=== PATIENT | female | born 1935 | race Caucasian/White ===

== ENCOUNTER → 2019-09-11 10:55 | Outpatient (BNVA) | payer MEDICARE, OTHER, SELFPAY | PROVIDERS: Family Provider Nurse Practitioner; Visit Provider Family Medicine | DX: I10 Essential (primary) hypertension (principal) | CPT/HCPCS: 80048 ==

== ENCOUNTER 2020-03-10 22:37 | Emergency (ER) | payer MEDICARE, OTHER, SELFPAY ==
[2020-03-10 22:43] VITALS: BP 198/91; PULSE 82; RESP 18; TEMP 36.8; O2SAT 96; BMI 28.1
--- NOTE | 2020-03-10 23:08 | XRR_ITS ---
PROCEDURE INFORMATION: Exam: XR Chest, 1 View Exam date and time: 03/10/2020 11:35 PM Age: 84 years old Clinical indication: Shortness of breath; Right-sided chest pain; Prior surgery; Surgery type: Stents; Additional info: Chest pain, resolved, SOB today TECHNIQUE: Imaging protocol: XR of the chest Views: 1 view. COMPARISON: CR Chest 2 views* [id number] 09/09/2015 12:10 PM FINDINGS: Lungs: The lungs are hyperinflated and hyperlucent with architectural changes compatible with emphysema. No pneumonia or pulmonary edema. Pleural space: No pleural effusion or pneumothorax. Heart/Mediastinum: The cardiac silhouette is not enlarged. The mediastinal contours are normal. Vasculature: The thoracic aorta is atherosclerotic. Bones/joints: No acute osseous abnormality. XR/XR chest 1V portable [id number] IMPRESSION: Emphysema.
--- NOTE | 2020-03-10 23:16 | ED_ITS ---
HPI - Extremity Problem General: Chief complaint: Extremity Problem,Nontraumatic Stated complaint: right arm pain Time Seen by Provider: 03/10/20 22:55 History of Present Illness: HPI Narrative: 4-year-old female with a history of coronary disease presents with an episode of right arm pain today, that was resolved. She states that it started medial to her right shoulder blade, radiated down her right side, and down into her arm. She did state that she too k 2 nitro prior to getting in the car to come to the hospital. These did not seem to help. On the way here, the pain resolved. She was not overly short of breath, but notes a mild increase in her shortness of breath during the episode when she had the pain. She also notes that she had an episode of less tightness yesterday with some mild shortness of breath that resolved after taking 1 nitroglycerin. She notes that her last stents were placed 3 or 4 years ago at a different facility. She has not had any stress testing or other interventions since. She is on anticoagulation, since September for a DVT of the left lower extremity. MD Complaint: extremity pain Onset (ago): hour(s) Pain Consistency: constant Location: right Quality: aching Radiation: proximal Relieving factors: nothing Exacerbating factors: nothing Associated symptoms: Reports chest pain and short of breath; Deny fever(s) or rash Context: history of DVT Review of Systems Const: Denies: fever(s) Eyes: Denies: change in vision ENMT: Denies: swelling of lips/tongue, bleeding gums, epistaxis or sinus pain Card: Reports: chest pain and edema; Denies: palpitations or irregular heart rhythm Resp: Reports: dyspnea; Denies: productive cough, non-productive cough or wheezing GI: Denies: abdominal pain, nausea or vomiting : Denies: dysuria or hematuria Musc: Reports: back pain; Denies: neck pain Skin/Breast: Denies: rash or erythema Neuro: Denies: headache(s), dizziness or vertigo Psych: Denies: anxiety Physical Exam Const: GENERAL APPEARANCE: well developed ORIENTATION/CONSCIOUSNESS: Yes oriented to person, Yes oriented to place and Yes oriented to time HENMT: COMMON NORMALS: normocephalic, external ears normal and Normal external nose present HEAD & SCALP: normocephalic FACE & SINUS: normal facial exam NOSE: Normal external nose present and No nasal discharge present EXTERNAL EAR: Yes external ears normal Eye: COMMON NORMALS: Equal, round and reactive pupils present, EOMs intact bilaterally and conjunctivae normal EYELID: eyelids normal CONJUNCTIVA: Yes conjunctivae normal PUPIL: Yes Equal, round and reactive pupils present Neck/C-Spine: GENERAL: No tracheal deviation Chest: COMMONS NORMALS: normal inspection of the chest CHEST: No tenderness Resp: COMMON NORMALS: clear to auscultation bilaterally EFFORT & INSPECTION: No tachypneic, No respiratory distress, No retractions, No uses accessory muscles and No tracheal deviation AUSCULTATION: clear to auscultation bilaterally, no rhonchi, no wheezes and lung sounds not diminished Cardio: COMMON NORMALS: regular rate and regular rhythm RATE: regular rate RHYTHM: regular rhythm HEART SOUNDS: no murmurs PERIPHERAL PULSES: radial pulses present GI: INSPECTION: No abdominal distension AUSCULTATION: No Hyperactive bowel sounds present and No Hypoactive bowel sounds present PALPATION: No Guarding due to palpation present (GI) and No Rigid due to palpation PERCUSSION: no dullness to percussion and no tympanic to percussion Neuro: SENSORIUM/ORIENTATION: Yes oriented to person, Yes oriented to place an d Yes oriented to time Psych: COMMON NORMALS: mental status grossly normal Skin: COMMON NORMALS: no rashes or lesions noted GENERAL SKIN EXAM: no rashes or lesions noted Course Vital Signs: Vital signs: Vital Signs Temperature 98.2 F 03/10/20 22:43 Pulse Rate 68 03/11/20 00:02 Respiratory Rate 16 03/11/20 00:02 Blood Pressure 170/80 03/11/20 00:02 Pulse Oximetry 94 03/11/20 00:02 MDM - Extremity (Nontraumatic) MDM Narrative: Medical decision making narrative: 84-year-old female presents with right back/shoulder pain, radiating into her right arm. Pain was self resolved prior to arrival. She has been hypertensive here, but notes that she missed her dosage of hypertension medicine today. She is not overly short of breath, but does complain of some mild shortness of breath for the past couple of days. Her EKG on arrival shows a normal sinus rhythm with normal axis and the rate is in the 60s. There are no acute ST changes. Repeat at 2 hours is the same. Her troponin initially was 14, and fell. It did not elevate. Her chest x-ray appears stable to improved from prior. Given her history, the patient was offered an observation bed in the hospital. Would be to continue monitoring, and rule out with serial troponins. She declined, stating that she would like to see her mri special procedures technologist in [facility] instead. She knows the risks including worsening symptoms, and possible . She will follow-up with cardiology. Warning signs were given for her return. Lab Data: Labs: Lab Results 03/10/20 03/10/20 03/10/20 Range/Units 23:12 23:12 23:12 WBC 8.1 (4.0-10.0) 10^3/ uL RBC 4.16 (4.1-5.3) 10^6/u L Hgb 12.8 (11.5-15.3) g/dL Hct 40.6 (37.0-47.0) % MCV 97.6 (81-99) fL MCH 30.8 (28.0-34.0) pg MCHC 31.5 (30.0-36.0) g/dL RDW 13.8 (12.1-15.1) % Plt Count 258 (130-400) 10^3/c mm MPV 9.2 (7.4-10.4) fL Neut % (Auto) 58.5 % Lymph % (Auto) 27.5 % [place] % (Auto) 10.3 % Eos % (Auto) 2.8 % Baso % (Auto) 0.7 % Neut # (Auto) 4.74 (1.8-7.7) 10^3/u L Lymph # (Auto) 2.2 (0.8-4.8) 10^3/u L [place] # (Auto) 0.8 (0.2-0.9) 10^3/u L Eos # (Auto) 0.2 (0.0-0.8) 10^3/u L Baso # (Auto) 0.1 (0.0-0.1) 10^3/u L Nucleated RBC % (a uto) 0 % Nucleated RBCs # 0.0 /100WBC Sodium 140 (136-145) mmol/L Potassium 4.4 (3.5-5.1) mmol/L Chloride 104 (98-107) mmol/L Carbon Dioxide 28 (22-29) mmol/L Anion Gap 12.4 (5-19) BUN 19 (8-23) mg/dL Creatinine 1.0 H (0.5-0.9) mg/dL GFR Calculation Not Reportable Glucose 100 (65-115) mg/dL Calculated Osmolal ity 287 (285-295) mOsm/k g Calcium 9.1 (8.5-10.5) mg/dL Total Bilirubin 0.2 (0.15-1.2) mg/dL AST 13 (0-32) U/L ALT 7 (0-33) U/L Alkaline Phosphata se 109 H (35-105) IU/L Creatine Kinase 44 (26-192) U/L Troponin T Baselin e 14 H (0-10) ng/L Troponin T 120 Min eddie (0-10) ng/L Delta Troponin T (0-10) ABS# NT-Pro-B Natriuret Pep 336 (0-450) pg/mL Total Protein 6.6 (6.6-8.7) g/dL Albumin 3.9 (3.5-5.2) g/dL Globulin 2.7 (1.3-4.6) g/dL 03/11/20 Range/Units 00:53 WBC (4.0-10.0) 10^3/ uL RBC (4.1-5.3) 10^6/u L Hgb (11.5-15.3) g/dL Hct (37.0-47.0) % MCV (81-99) fL MCH (28.0-34.0) pg MCHC (30.0-36.0) g/dL RDW (12.1-15.1) % Plt Count (130-400) 10^3/c mm MPV (7.4-10.4) fL Neut % (Auto) % Lymph % (Auto) % [place] % (Auto) % Eos % (Auto) % Baso % (Auto) % Neut # (Auto) (1.8-7.7) 10^3/u L Lymph # (Auto) (0.8-4.8) 10^3/u L [place] # (Auto) (0.2-0.9) 10^3/u L Eos # (Auto) (0.0-0.8) 10^3/u L Baso # (Auto) (0.0-0.1) 10^3/u L Nucleated RBC % (a uto) % Nucleated RBCs # /100WBC Sodium (136-145) mmol/L Potassium (3.5-5.1) mmol/L Chloride (98-107) mmol/L Carbon Dioxide (22-29) mmol/L Anion Gap (5-19) BUN (8-23) mg/dL Creatinine (0.5-0.9) mg/dL GFR Calculation Glucose (65-115) mg/dL Calculated Osmolal ity (285-295) mOsm/k g Calcium (8.5-10.5) mg/dL Total Bilirubin (0.15-1.2) mg/dL AST (0-32) U/L ALT (0-33) U/L Alkaline Phosphata se (35-105) IU/L Creatine Kinase (26-192) U/L Troponin T Baselin e (0-10) ng/L Troponin T 120 Min eddie 11.93 H (0-10) ng/L Delta Troponin T -2.07 L (0-10) ABS# NT-Pro-B Natriuret Pep (0-450) pg/mL Total Protein (6.6-8.7) g/dL Albumin (3.5-5.2) g/dL Globulin (1.3-4.6) g/dL Discharge Plan Discharge Patient Disposition: Home Clinical Impression: Atypical chest pain Condition: Stable Discharge Orders: Discharge Order (Routine); Ordered 03/11/20 Ordered By: Socrates Ortega Referrals: Bakari Oneil, VARNISH DIPPER-C [Primary Care Provider] - Discharge Diet: Usual diet Discharge Activity: Increase activity as tolerated Patient Instructions: Chest Pain (ED) Activity Restrictions/Additional Instructions: Return for return of arm discomfort, back or chest discomfort. Return for shortness of breath, or, cough, sputum production or other concerning symptoms. Be sure to take your nighttime dosage of blood pressure medication when you return home. Call your heart doctor later today, and let them know you were evaluated here for arm and back discomfort. They may wish to perform more tests as an outpatient. Coding Level of Care Code ED Outpatient Physical Therapist for Chg Fwd Exam Comprehensive
[2020-03-10 23:21] LABS: Basophils # 0.1 10^3/uL (0.0-0.1); Basophils % 0.7 %; Eosinophils # 0.2 10^3/uL (0.0-0.8); Eosinophils % 2.8 %; Hematocrit 40.6 % (37.0-47.0); Hemoglobin 12.8 g/dL (11.5-15.3); Lymphocytes # 2.2 10^3/uL (0.8-4.8); Lymphocytes % 27.5 %; Mean Corpuscular HGB Conc 31.5 g/dL (30.0-36.0); Mean Corpuscular Hemoglobin 30.8 pg (28.0-34.0); Mean Corpuscular Volume 97.6 fL (81-99); Mean Platelet Volume 9.2 fL (7.4-10.4); Monocytes # 0.8 10^3/uL (0.2-0.9); Monocytes % 10.3 %; Neutrophils # 4.74 10^3/uL (1.8-7.7); Neutrophils % 58.5 %; Nucleated Red Blood Cells % 0 %; Platelet Count 258 10^3/cmm (130-400); Red Blood Count 4.16 10^6/uL (4.1-5.3); Red Cell Distribution Width 13.8 % (12.1-15.1); White Blood Count 8.1 10^3/uL (4.0-10.0)
[2020-03-10 23:56] LABS: Alanine Aminotransferase 7 U/L (0-33); Albumin Level 3.9 g/dL (3.5-5.2); Alkaline Phosphatase 109 IU/L (35-105); Anion Gap 12.4 (5-19); Aspartate Amino Transferase 13 U/L (0-32); Blood Urea Nitrogen 19 mg/dL (8-23); Calcium 9.1 mg/dL (8.5-10.5); Carbon Dioxide 28 mmol/L (22-29); Chloride 104 mmol/L (98-107); Creatine Phosphokinase 44 U/L (26-192); Globulin 2.7 g/dL (1.3-4.6); Glucose 100 mg/dL (65-115); NT Pro B Type Natriuretic Pept 336 pg/mL (0-450); Osmolality Calculated 287 mOsm/kg (285-295); Potassium 4.4 mmol/L (3.5-5.1); Sodium 140 mmol/L (136-145); Total Bilirubin 0.2 mg/dL (0.15-1.2); Total Protein 6.6 g/dL (6.6-8.7)
[2020-03-10] MEDS: labetalol 5 mg/mL SDV 20mL 10 MG IVP (23:58)
[2020-03-10] MEDS: nitroglycerin 1 gm/inch oint Pkt 1 INCH TOPICAL (23:59)
[2020-03-11 00:02] VITALS: BP 170/80; PULSE 68; RESP 16; O2SAT 94
[2020-03-11 00:10] LABS: Troponin(5th) Baseline 14 ng/L (0-10)
--- NOTE | 2020-03-11 01:08 | ECG_ITS ---
[facility] Test Date: 2020-03-11 Pat Name: Stacey Benitez Department: Room: Gender: Female [employer] Operator: : 1935 Requested By: Socrates Mendoza Order Number: [id number] Brooke MD: Rubén Killian M.D. Measurements Intervals [place] Rate: 63 P: 67 DE: 167 QRS: 16 QRSD: 79 T: 74 QT: 403 QTc: 414 Interpretive Statements SINUS RHYTHM No previous ECG available for comparison Electronically Signed On 03-11-2020 12:02:29 CDT by Rubén Killian M.D. [email or web address]
[2020-03-11 01:31] LABS: Troponin 5 2HR 11.93 ng/L (0-10)
[2020-03-11 01:32] LABS: Troponin 5 2HR Delta -2.07 ABS# (0-10)
[2020-03-11] MEDS: labetalol 5 mg/mL SDV 20mL 10 MG IVP (01:45)
[2020-03-11 02:11] VITALS: BP 149/51; PULSE 88; RESP 16; O2SAT 98
== END 2020-03-11 02:12 | disposition home or self-care (01) ==
PROVIDERS: Emergency Provider Emergency Medicine; PCP Nurse Practitioner
DX: R07.89 Other chest pain (principal)
CPT/HCPCS: 12345; 36415; 71045; 80053; 82550; 83880; 84484; 85025; 93005; 96374; 96376; 99282; 99284; J3490

== ENCOUNTER 2020-03-12 10:32 | Outpatient (CLI) | payer MEDICARE, OTHER, SELFPAY | END 2020-03-12 10:33 | disposition home or self-care (01) | LOC: LAB 10:38 | PROVIDERS: PCP Nurse Practitioner; Visit Provider Surgery Vascular Surgery | DX: I71.4 Abdominal aortic aneurysm, without rupture (principal) | CPT/HCPCS: 82565 ==

== ENCOUNTER 2020-03-14 13:20 | Outpatient (CLI) | payer MEDICARE, OTHER, SELFPAY ==
[2020-03-14 14:26] LABS: INR 1.27 (0.8-1.2)
[2020-03-14 14:27] LABS: Partial Thromboplastin Time 49.6 SECONDS (23.9-36.7)
== END 2020-03-14 13:21 | disposition home or self-care (01) ==
LOC: LAB 13:27
PROVIDERS: PCP Nurse Practitioner; Visit Provider Internal Medicine Interventional Cardiology
DX: R07.9 Chest pain, unspecified (principal); I71.4 Abdominal aortic aneurysm, without rupture; I10 Essential (primary) hypertension
CPT/HCPCS: 36415; 85610; 85730

== ENCOUNTER → 2020-03-28 16:58 | Outpatient (BNVA) | payer MEDICARE, OTHER, SELFPAY | PROVIDERS: PCP Nurse Practitioner; Visit Provider Surgery Vascular Surgery | DX: I71.4 Abdominal aortic aneurysm, without rupture (principal) | CPT/HCPCS: 80048 ==

== ENCOUNTER 2020-05-24 14:45 | Emergency (ER) | payer MEDICARE, OTHER, SELFPAY ==
[2020-05-24] VITALS (9 sets, daily range): BP systolic 130–190; BP diastolic 76–108; PULSE 67–91; RESP 15–21; TEMP 36.4; O2SAT 97–100; BMI 27.4
--- NOTE | 2020-05-24 15:05 | ED_ITS ---
Documented by User: Rikki Greenwood DO 05/25/20 10:35 HPI - Chest Pain General: Chief Complaint: Chest Pain Stated Complaint: chest pain/ cardiac hx Time Seen by Provider: 05/24/20 14:48 History of Present Illness: HPI narrative: 85-year-old female comes in complaining chest pain it was present when she woke up this morning it is radiating around her lower portion of her chest she is not radiating into her back or into her legs. She does have a history of abdominal aortic aneurysm but that has not been bothering her recently has been monitored and stable for some time. She is been following with a doctor in [place]. She does have a coronary history of coronary artery disease. She is not currently having any pain. She has had testing done recently in [place] for her abdominal aortic aneurysm and for her heart. We do not have copies of these records. MD complaint: chest pain and chest heaviness Pertinent past history: coronary artery disease Onset (ago): hour(s) Timing of current episode: episodic and now resolved Onset: during rest Pain location: epigastric Pain radiation: none Severity: moderate Quality: tightness, aching and heaviness Relieving factors: nothing Exacerbating factors: nothing Associated symptoms: Reports no associated symptoms; Deny abdominal pain, diaphoresis, dyspnea, fever(s), leg edema, nausea, palpitations, sense of impending doom, syncope or vomiting Treatment prior to arrival: none Review of Systems Const: Denies: fever(s) or diaphoresis ENMT: Denies: throat pain, ear or mastoid pain, nasal discharge or nasal congestion Card: Denies: palpitations or syncope Resp: Denies: dyspnea GI: Denies: abdominal pain, nausea or vomiting : Denies: flank pain, difficulty voiding, dysuria, urinary frequency or urinary urgency Skin/Breast: Denies: rash or pruritus PFS ED PFSH: Medical History (Updated 05/24/20 @ 21:04 by Lynn Yip) Coronary artery disease Hypertension Physical Exam Const: COMMON NORMALS: no acute distress GENERAL APPEARANCE: cooperative and comfortable ORIENTATION/CONSCIOUSNESS: Yes awake, Yes oriented to person, Yes oriented to place and Yes oriented to time HENMT: COMMON NORMALS: normocephalic, atraumatic and hearing grossly normal bilaterally HEAD & SCALP: normocephalic and atraumatic Eye: COMMON NORMALS: Equal, round and reactive pupils present, EOMs intact bilaterally, conjunctivae normal and no scleral icterus CONJUNCTIVA: Yes conjunctivae normal PUPIL: Yes Equal, round and reactive pupils present Neck/C-Spine: COMMON NORMALS: full ROM, no lymphadenopathy, supple and no JVD Lymph: LYMPHATIC: no lymphadenopathy noted and no lymphedema noted Resp: COMMON NORMALS: normal respiratory effort, No retractions, No use of accessory muscles and clear to auscultation bilaterally AUSCULTATION: clear to auscultation bilaterally Cardio: COMMON NORMALS: no JVD, regular rate, regular rhythm and No murmurs present (Cardio) RATE: regular rate RHYTHM: regular rhythm GI: COMMON NORMALS: Soft to palpation and No hepatosplenomegaly present AUSCULTATION: Yes normoactive bowel sounds PALPATION: Yes Soft to palpation, No Tenderness to palpation present (GI), No Guarding due to palpation present (GI) and Yes No hepatosplenomegaly present Extremity: COMMON NORMALS: normal to inspection, capillary refill normal, no clubbing, cyanosis or edema, no calf tenderness and no pedal edema Neuro: SENSORIUM/ORIENTATION: Yes oriented to person, Yes oriented to place and Yes oriented to time Skin: COMMON NORMALS: no rashes or lesions noted GENERAL SKIN EXAM: no rashes or lesions noted Course 2 Vital Signs: Vital signs: Vital Signs Temperature 97.6 F 05/24/20 21:34 Pulse Rate 72 05/24/20 21:34 Respiratory Rate 18 05/24/20 21:34 Blood Pressure 190/96 05/24/20 21:34 Pulse Oximetry 98 05/24/20 21:34 MDM - Chest Pain MDM Narrative: Medical decision making narrative: Care turned over to Dr. Beck at change of shift waiting on troponin patient does have history of heart disease. Lab Data: Labs: Lab Results 05/24/20 05/24/20 05/24/20 Range/Units 15:20 15:20 15:20 WBC 7.8 (4.0-10.0) 10^3/ uL RBC 4.23 (4.1-5.3) 10^6/u L Hgb 13.1 (11.5-15.3) g/dL Hct 39.9 (37.0-47.0) % MCV 94.3 (81-99) fL MCH 31.0 (28.0-34.0) pg MCHC 32.8 (30.0-36.0) g/dL RDW 13.6 (12.1-15.1) % Plt Count 291 (130-400) 10^3/c mm MPV 9.0 (7.4-10.4) fL Neut % (Auto) 72.2 % Lymph % (Auto) 17.7 % [place] % (Auto) 7.6 % Eos % (Auto) 1.5 % Baso % (Auto) 0.5 % Neut # (Auto) 5.59 (1.8-7.7) 10^3/u L Lymph # (Auto) 1.4 (0.8-4.8) 10^3/u L [place] # (Auto) 0.6 (0.2-0.9) 10^3/u L Eos # (Auto) 0.1 (0.0-0.8) 10^3/u L Baso # (Auto) 0.0 (0.0-0.1) 10^3/u L Nucleated RBC % (a uto) 0 % Nucleated RBCs # 0.0 /100WBC Sodium 140 (136-145) mmol/L Potassium 4.2 (3.5-5.1) mmol/L Chloride 103 (98-107) mmol/L Carbon Dioxide 21 L (22-29) mmol/L Anion Gap 20.2 H (5-19) BUN 16 (8-23) mg/dL Creatinine 0.8 (0.5-0.9) mg/dL GFR Calculation Not Reportable Glucose 130 H (65-115) mg/dL Calculated Osmolal ity 293 (285-295) mOsm/k g Calcium 8.9 (8.5-10.5) mg/dL Total Bilirubin 0.3 (0.15-1.2) mg/dL AST 12 (0-32) U/L ALT 7 (0-33) U/L Alkaline Phosphata se 139 H (35-105) IU/L Troponin T Baselin e 9 (0-10) ng/L Troponin T 120 [address] [place] (0-10) ng/L Delta Troponin T (0-10) ABS# Total Protein 6.0 L (6.6-8.7) g/dL Albumin 3.9 (3.5-5.2) g/dL Globulin 2.1 (1.3-4.6) g/dL 05/24/20 Range/Units 17:39 WBC (4.0-10.0) 10^3/ uL RBC (4.1-5.3) 10^6/u L Hgb (11.5-15.3) g/dL Hct (37.0-47.0) % MCV (81-99) fL MCH (28.0-34.0) pg MCHC (30.0-36.0) g/dL RDW (12.1-15.1) % Plt Count (130-400) 10^3/c mm MPV (7.4-10.4) fL Neut % (Auto) % Lymph % (Auto) % [place] % (Auto) % Eos % (Auto) % Baso % (Auto) % Neut # (Auto) (1.8-7.7) 10^3/u L Lymph # (Auto) (0.8-4.8) 10^3/u L [place] # (Auto) (0.2-0.9) 10^3/u L Eos # (Auto) (0.0-0.8) 10^3/u L Baso # (Auto) (0.0-0.1) 10^3/u L Nucleated RBC % (a uto) % Nucleated RBCs # /100WBC Sodium (136-145) mmol/L Potassium (3.5-5.1) mmol/L Chloride (98-107) mmol/L Carbon Dioxide (22-29) mmol/L Anion Gap (5-19) BUN (8-23) mg/dL Creatinine (0.5-0.9) mg/dL GFR Calculation Glucose (65-115) mg/dL Calculated Osmolal ity (285-295) mOsm/k g Calcium (8.5-10.5) mg/dL Total Bilirubin (0.15-1.2) mg/dL AST (0-32) U/L ALT (0-33) U/L Alkaline Phosphata se (35-105) IU/L Troponin T Baselin e (0-10) ng/L Troponin T 120 [address] [place] 9.57 (0-10) ng/L Delta Troponin T 0.57 (0-10) ABS# Total Protein (6.6-8.7) g/dL Albumin (3.5-5.2) g/dL Globulin (1.3-4.6) g/dL Discharge Plan Discharge Patient Disposition: Left Against Medical Advice Clinical Impression: Chest pain Qualifiers: Chest pain type: unspecified Qualified Code(s): R07.9 - Chest pain, unspecified Condition: Stable Prescriptions: New Protonix 40 mg tablet,delayed release (DR/EC) 40 mg PO DAILY Qty: 30 RF: 0 No Action losartan 50 mg tablet 50 mg PO DAILY RF: 0 Tylenol Extra Strength 500 mg Tablet 1,000 mg PO PRN RF: 0 triamcinolone acetonide 0.1 % cream 1 applic TOPICAL PRN RF: 0 nitroglycerin 0.4 mg tablet, sublingual 0.4 mg sublingual PRN PRN (Reason: Chest Pain) RF: 0 alprazolam 2 mg tablet 2 mg PO BID PRN (Reason: unknown) RF: 0 Pradaxa 150 mg Capsule 150 mg PO BID RF: 0 magnesium oxide 400 mg magnesium Tablet 600 mg PO DAILY RF: 0 Eye Vitamins 1 tab PO DAILY RF: 0 Vitamin D3 1 cap PO DAILY RF: 0 Discharge Orders: Discharge Order (Routine); Ordered 05/24/20 Ordered By: Lynn Yip Referrals: Bakari Oneil, [employer] ELASTIC OPERATOR-C [Primary Care Provider] - 1-3 days Discharge Diet: Advance as tolerated Discharge Activity: Increase activity as tolerated Patient Instructions: Chest Pain (ED) Activity Restrictions/Additional Instructions: You're leaving AGAINST MEDICAL ADVICE and are at risk for or severe permanent disability by doing so. You are more than welcome to return at any time for recheck and for further evaluation and care suture change you change your mind. If you develop recurrence of your pain, become sweaty for no reason, vomit, pass out or nearly pass out, or have any other concerns please return to the ER immediately for recheck. Take the medication that I have given you as it may help with the stomach acid. Be certain to follow-up with your value advisor at home as soon as possible for recheck. Stand Alone Forms: Against Medical Advice Discharge Date/Time: 05/24/20 21:34 Sign Out Sign Out Data: Patient Sign Out occurred on 05/24/20 at 18:57. Patient's care was discussed, and care was transferred from to Lynn Yip. Coding Level of Care Code ED Sheet Rock Hanger for Chg Fwd Exam Comprehensive Documented by User: Lynn Yip 05/24/20 22:01 HPI - Chest Pain General: Chief Complaint: Chest Pain Stated Complaint: chest pain/ cardiac hx Time Seen by Provider: 05/24/20 14:48 PFSH ED PFSH: Medical History (Updated 05/24/20 @ 21:04 by Lynn Yip) Coronary artery disease Hypertension Course Vital Signs: Vital signs: Vital Signs Temperature 97.6 F 05/24/20 21:34 Pulse Rate 72 05/24/20 21:34 Respiratory Rate 18 05/24/20 21:34 Blood Pressure 190/96 05/24/20 21:34 Pulse Oximetry 98 05/24/20 21:34 MDM - Chest Pain MDM Narrative: Medical decision making narrative: 2106 -Case turned over to me at change of shift from Dr. Greenwood. Please see his note for his history, physical exam and medical decision-making notes. Stacey is a nice 85-year-old female who comes in complaining of chest discomfort. She states the pain feels like an indigestion type pain that is throughout her chest. Did not radiate to her back, her neck, her jaws or down her arms. She denied any nausea or vomiting, diaphoresis, shortness of breath, or worsening with exertion. The patient symptom lasted approximately 6 hours before it gradually resolved on its own. She did take 2 doses of sublingual nitroglycerin at home but got no relief with them. Patient states that this feels different than when she had her card iac pain in the past as that pain was always down her arms. Upon further history the patient states that she had a heart cath done in [place] 2 months ago and was told it was normal. Patient does have a known abdominal aortic aneurysm but she adamantly denies any abdominal or back pain. Patient states that she is not certain of the size but it is not something her cardiovascular surgeon feels needs to be intervened on now. The patient's exam is normal to me here. She has stable vital signs and a normal heart and lung evaluation. On exam she has no evidence of abdominal tenderness and I do not feel a pulsatile mass. Per her hospital chest pain pathway the patient's heart score is slightly elevated at 5. This is for primarily risk factors and stable but continued abnormal EKG findings. I discussed with the patient and her at length the risks of this being a heart attack and despite my recommendations they want to go home. Patient states that she is very hungry and she wants to leave to eat. I have informed her that the risks of leaving include or severe permanent disability by this but despite my warnings they choose to leave. Patient clearly has the capacity to make this decision and despite me trying to convince her to stay she refuses. She does understand she is welcome to return if her symptoms change or worsen but at this time she is feeling better and would like to go home. It is reassuring she had a normal heart cath 2 months ago but this is her report I have not had a chance to review this myself. She does understand though she is welcome to return here if she changes her mind. Lab Data: Attestation: I reviewed the patient's lab results. Labs: Lab Results 05/24/20 05/24/20 05/24/20 Range/Units 15:20 15:20 15:20 WBC 7.8 (4.0-10.0) 10^3/ uL RBC 4.23 (4.1-5.3) 10^6/u L Hgb 13.1 (11.5-15.3) g/dL Hct 39.9 (37.0-47.0) % MCV 94.3 (81-99) fL MCH 31.0 (28.0-34.0) pg MCHC 32.8 (30.0-36.0) g/dL RDW 13.6 (12.1-15.1) % Plt Count 291 (130-400) 10^3/c mm MPV 9.0 (7.4-10.4) fL Neut % (Auto) 72.2 % Lymph % (Auto) 17.7 % [place] % (Auto) 7.6 % Eos % (Auto) 1.5 % Baso % (Auto) 0.5 % Neut # (Auto) 5.59 (1.8-7.7) 10^3/u L Lymph # (Auto) 1.4 (0.8-4.8) 10^3/u L [place] # (Auto) 0.6 (0.2-0.9) 10^3/u L Eos # (Auto) 0.1 (0.0-0.8) 10^3/u L Baso # (Auto) 0.0 (0.0-0.1) 10^3/u L Nucleated RBC % (a uto) 0 % Nucleated RBCs # 0.0 /100WBC Sodium 140 (136-145) mmol/L Potassium 4.2 (3.5-5.1) mmol/L Chloride 103 (98-107) mmol/L Carbon Dioxide 21 L (22-29) mmol/L Anion Gap 20.2 H (5-19) BUN 16 (8-23) mg/dL Creatinine 0.8 (0.5-0.9) mg/dL GFR Calculation Not Reportable Glucose 130 H (65-115) mg/dL Calculated Osmolal ity 293 (285-295) mOsm/k g Calcium 8.9 (8.5-10.5) mg/dL Total Bilirubin 0.3 (0.15-1.2) mg/dL AST 12 (0-32) U/L ALT 7 (0-33) U/L Alkaline Phosphata se 139 H (35-105) IU/L Troponin T Baselin e 9 (0-10) ng/L Troponin T 120 [address] [place] (0-10) ng/L Delta Troponin T (0-10) ABS# Total Protein 6.0 L (6.6-8.7) g/dL Albumin 3.9 (3.5-5.2) g/dL Globulin 2.1 (1.3-4.6) g/dL 05/24/20 Range/Units 17:39 WBC (4.0-10.0) 10^3/ uL RBC (4.1-5.3) 10^6/u L Hgb (11.5-15.3) g/dL Hct (37.0-47.0) % MCV (81-99) fL MCH (28.0-34.0) pg MCHC (30.0-36.0) g/dL RDW (12.1-15.1) % Plt Count (130-400) 10^3/c mm MPV (7.4-10.4) fL Neut % (Auto) % Lymph % (Auto) % [place] % (Auto) % Eos % (Auto) % Baso % (Auto) % Neut # (Auto) (1.8-7.7) 10^3/u L Lymph # (Auto) (0.8-4.8) 10^3/u L [place] # (Auto) (0.2-0.9) 10^3/u L Eos # (Auto) (0.0-0.8) 10^3/u L Baso # (Auto) (0.0-0.1) 10^3/u L Nucleated RBC % (a uto) % Nucleated RBCs # /100WBC Sodium (136-145) mmol/L Potassium (3.5-5.1) mmol/L Chloride (98-107) mmol/L Carbon Dioxide (22-29) mmol/L Anion Gap (5-19) BUN (8-23) mg/dL Creatinine (0.5-0.9) mg/dL GFR Calculation Glucose (65-115) mg/dL Calculated Osmolal ity (285-295) mOsm/k g Calcium (8.5-10.5) mg/dL Total Bilirubin (0.15-1.2) mg/dL AST (0-32) U/L ALT (0-33) U/L Alkaline Phosphata se (35-105) IU/L Troponin T Baselin e (0-10) ng/L Troponin T [address] [place] 9.57 (0-10) ng/L Delta Troponin T 0.57 (0-10) ABS# Total Protein (6.6-8.7) g/dL Albumin (3.5-5.2) g/dL Globulin (1.3-4.6) g/dL Imaging Data^: CXR: Attestation: I personally reviewed and interpreted this imaging study as follows: My impression: No acute cardiopulmonary findings. EKG Data^: EKG 1: Attestation: I personally reviewed and interpreted this EKG as follows: EKG interpretation date: 05/24/20 EKG interpretation time: 15:34 Interpretation: Normal sinus rhythm at 73 beats a minute, T wave inversions in aVL and V2 to, unchanged from previous. EKG 2: Attestation: I personally reviewed and interpreted this EKG as follows: EKG interpretation date: 05/24/20 EKG interpretation time: 17:35 Interpretation: Normal sinus rhythm at 66 beats a minute, no acute ST-T wave changes. Stable T wave inversions in aVL and V2. Similar to previous. Discharge Plan Discharge Patient Disposition: Left Against Medical Advice Clinical Impression: Chest pain Qualifiers: Chest pain type: unspecified Qualified Code(s): R07.9 - Chest pain, unspecified Condition: Stable Prescriptions: New Protonix 40 mg tablet,delayed release (DR/EC) 40 mg PO DAILY Qty: 30 RF: 0 No Action losartan 50 mg tablet 50 mg PO DAILY RF: 0 Tylenol Extra Strength 500 mg Tablet 1,000 mg PO PRN RF: 0 triamcinolone acetonide 0.1 % cream 1 applic TOPICAL PRN RF: 0 nitroglycerin 0.4 mg tablet, sublingual 0.4 mg sublingual PRN PRN (Reason: Chest Pain) RF: 0 alprazolam 2 mg tablet 2 mg PO BID PRN (Reason: unknown) RF: 0 Pradaxa 150 mg Capsule 150 mg PO BID RF: 0 magnesium oxide 400 mg magnesium Tablet 600 mg PO DAILY RF: 0 Eye Vitamins 1 tab PO DAILY RF: 0 Vitamin D3 1 cap PO DAILY RF: 0 Discharge Orders: Discharge Order (Routine); Ordered 05/24/20 Ordered By: Lynn Yip Referrals: Bakari Oneil, [employer] T[employer] ELASTIC OPERATOR-C [Primary Care Provider] - 1-3 days Discharge Diet: Advance as tolerated Discharge Activity: Increase activity as tolerated Patient Instructions: Chest Pain (ED) Activity Restrictions/Additional Instructions: You're leaving AGAINST MEDICAL ADVICE and are at risk for or severe permanent disability by doing so. You are more than welcome to return at any time for recheck and for further evaluation and care suture change you change your mind. If you develop recurrence of your pain, become sweaty for no reason, vomit, pass out or nearly pass out, or have any other concerns please return to the ER immediately for recheck. Take the medication that I have given you as it may help with the stomach acid. Be certain to follow-up with your value advisor at home as soon as possible for recheck. Stand Alone Forms: Against Medical Advice Discharge Date/Time: 05/24/20 21:34 Sign Out Sign Out Data: Patient Sign Out occurred on 05/24/20 at 18:57. Patient's care was discussed, and care was transferred from to Lynn Yip. Coding Level of Care Code ED Sheet Rock Hanger for Santi Fwd Exam Comprehensive
--- NOTE | 2020-05-24 15:07 | XR_ITS ---
WS: [id number] XR chest 1V portable [id number] REASON FOR EXAM: chest pain FINDINGS: The chest is unchanged compared to previous examination of 03/10/2020. The lungs are hyperexpanded with flattening of the hemidiaphragms. No active pulmonary parenchymal or pleural disease is noted. Moderate tortuosity and ectasia of the thoracic aorta. Heart size is normal. The bony thorax is intact. XR/XR chest 1V portable [id number] IMPRESSION: Probable obstructive lung disease. No acute chest abnormality identified.
--- NOTE | 2020-05-24 15:07 | ECG_ITS ---
[facility] Test Date: 2020-05-24 Pat Name: Stacey Benitez Department: Room: Gender: Female Prefitter Doors: : 1935 Requested By: Rikki Cerda Order Number: [id number] Reading MD: RICARDO SCRUGGS Measurements Intervals [place] Rate: 73 P: 74 LA: 167 QRS: 1 QRSD: 70 T: 72 QT: 372 QTc: 411 Interpretive Statements SINUS RHYTHM Compared to ECG 03/11/2020 00:57:13 No significant changes Electronically Signed On 05-24-2020 19:27:58 PLANT SECURITY GUARD by RICARDO SCRUGGS [id number]
[2020-05-24 15:33] LABS: Basophils % 0.5 %; Eosinophils # 0.1 10^3/uL (0.0-0.8); Eosinophils % 1.5 %; Hematocrit 39.9 % (37.0-47.0); Hemoglobin 13.1 g/dL (11.5-15.3); Lymphocytes # 1.4 10^3/uL (0.8-4.8); Lymphocytes % 17.7 %; Mean Corpuscular HGB Conc 32.8 g/dL (30.0-36.0); Mean Corpuscular Volume 94.3 fL (81-99); Monocytes # 0.6 10^3/uL (0.2-0.9); Monocytes % 7.6 %; Neutrophils # 5.59 10^3/uL (1.8-7.7); Neutrophils % 72.2 %; Nucleated Red Blood Cells % 0 %; Platelet Count 291 10^3/cmm (130-400); Red Blood Count 4.23 10^6/uL (4.1-5.3); Red Cell Distribution Width 13.6 % (12.1-15.1); White Blood Count 7.8 10^3/uL (4.0-10.0)
[2020-05-24 16:59] LABS: Alanine Aminotransferase 7 U/L (0-33); Albumin Level 3.9 g/dL (3.5-5.2); Alkaline Phosphatase 139 IU/L (35-105); Anion Gap 20.2 (5-19); Aspartate Amino Transferase 12 U/L (0-32); Blood Urea Nitrogen 16 mg/dL (8-23); Calcium 8.9 mg/dL (8.5-10.5); Carbon Dioxide 21 mmol/L (22-29); Chloride 103 mmol/L (98-107); Globulin 2.1 g/dL (1.3-4.6); Glucose 130 mg/dL (65-115); Osmolality Calculated 293 mOsm/kg (285-295); Potassium 4.2 mmol/L (3.5-5.1); Sodium 140 mmol/L (136-145); Total Bilirubin 0.3 mg/dL (0.15-1.2)
--- NOTE | 2020-05-24 17:07 | ECG_ITS ---
[facility] Test Date: 2020-05-24 Pat Name: Stacey Benitez Department: Room: Gender: Female Armament Aircraft Mechanic: : 1935 Requested By: Rikki Cerda Order Number: [id number] Reading MD: RICARDO SCRUGGS Measurements Intervals [place] Rate: 66 P: 71 CO: 159 QRS: 13 QRSD: 81 T: 78 QT: 402 QTc: 422 Interpretive Statements SINUS RHYTHM SEPTAL MYOCARDIAL INFARCTION , OF INDETERMINATE AGE [40+ ms Q WAVE IN V1/V2] Compared to ECG 05/24/2020 15:34:59 Myocardial infarct finding now present Electronically Signed On 05-24-2020 19:31:18 AD OPERATIONS INTERN by RICARDO SCRUGGS [id number]
[2020-05-24 17:40] LABS: Troponin(5th) Baseline 9 ng/L (0-10)
[2020-05-24 18:23] LABS: Troponin 5 2HR 9.57 ng/L (0-10); Troponin 5 2HR Delta 0.57 ABS# (0-10)
--- NOTE | 2020-05-24 20:22 | PC.NURSE ---
PATIENT UPDATED ON CARE PLAN AND ALL QUESTIONS ANSWERED
== END 2020-05-24 21:34 | disposition left against medical advice (07) ==
PROVIDERS: Family Medicine; Emergency Provider Emergency Medicine; PCP Nurse Practitioner
DX: R07.9 Chest pain, unspecified (principal); Z53.21 Procedure and treatment not carried out due to patient leaving prior to being seen by health care provider; I25.10 Atherosclerotic heart disease of native coronary artery without angina pectoris; I10 Essential (primary) hypertension
CPT/HCPCS: 12345; 71045; 80053; 84484; 85025; 93005; 99283

== ENCOUNTER → 2020-07-23 12:42 | Outpatient (BNVA) | payer MEDICARE, OTHER, SELFPAY | PROVIDERS: PCP Internal Medicine; Referring Provider Internal Medicine; Visit Provider Nurse Practitioner Family | DX: N39.0 Urinary tract infection, site not specified; N39.46 Mixed incontinence; R82.71 Bacteriuria | CPT/HCPCS: 81003; 87077; 87086; 87184 ==

== ENCOUNTER → 2020-08-22 14:00 | Outpatient (BNVA) | payer MEDICARE, OTHER, SELFPAY | PROVIDERS: PCP Internal Medicine; Visit Provider Surgery Vascular Surgery | DX: I71.4 Abdominal aortic aneurysm, without rupture (principal); I10 Essential (primary) hypertension; I25.10 Atherosclerotic heart disease of native coronary artery without angina pectoris | CPT/HCPCS: 80048 ==

== ENCOUNTER → 2020-12-04 10:56 | Outpatient (BNVA) | payer MEDICARE, OTHER, SELFPAY | PROVIDERS: PCP Internal Medicine; Visit Provider Surgery Vascular Surgery | DX: I10 Essential (primary) hypertension (principal) | CPT/HCPCS: 80048 ==

== ENCOUNTER → 2020-12-11 08:52 | Outpatient (BNVA) | payer MEDICARE, OTHER, SELFPAY | PROVIDERS: PCP Internal Medicine; Visit Provider Nurse Practitioner | DX: N39.46 Mixed incontinence (principal); Z98.890 Other specified postprocedural states; R82.71 Bacteriuria | CPT/HCPCS: 81003; 87077; 87086; 87184 ==

== ENCOUNTER → 2021-01-02 11:56 | Outpatient (BNVA) | payer MEDICARE, OTHER, SELFPAY | PROVIDERS: PCP Nurse Practitioner; Visit Provider Nurse Practitioner | DX: M25.511 Pain in right shoulder (principal); I10 Essential (primary) hypertension; R82.90 Unspecified abnormal findings in urine | CPT/HCPCS: 81000; 87077; 87086; 87184 ==

== ENCOUNTER 2021-03-03 13:23 | Outpatient (CLI) | payer MEDICARE, OTHER, SELFPAY ==
--- NOTE | 2021-03-03 13:33 | CT_ITS ---
WS: [id number] CT CHEST TECHNIQUE: Noncontrast CT of the chest with coronal and sagittal reformatted images. CLINICAL INFORMATION: PULMONARY NODULE COMPARISON: CTA chest 2006 DLP: 600.[address] scans at [facility] use at least one of these dose optimization techniques: automat ed exposure control; mA and/or kV adjustment per patient size (includes targeted exams where dose is matched to clinical indication); or iterative reconstruction. FINDINGS: Moderate chronic emphysematous changes. No acute pulmonary infiltrates. Subpleural opacity left lower lobe measuring 9 x 13 mm. Adjacent satellite nodule measuring 6 mm. Subsegmental atelectasis right l ower lobe with small wedge-shaped opacity measuring 10 mm. This appears unchanged since 2016 CT abdom en pelvis Bronchiectasis with mucus plugging in the anterior left upper lobe unchanged since 2005. Scattered fi brosis in both lungs. Aortic calcification. Coronary calcification. Normal caliber thoracic aorta. No mediastinal or hilar lymphadenopathy. Adrenal glands are normal. Cholecystectomy. Small esophageal h iatal hernia. Partially visualized endograft in the upper abdomen. Mild thoracic kyphosis.. CT/CT chest wo con [id number] IMPRESSION: 1. Noncalcified subpleural opacity left lower lobe posteriorly measuring 9 x 1 3 mm with a small satellite nodule measuring 6 mm. This is directly behind the ribs and not easily amenable to CT-guided biopsy. Recommend further evaluation with PET/CT and/or three-month chest CT follow-up. Neoplasm is not excluded. 2. 10 mm wedge-shaped opacity with subsegmental atelectasis right lower lobe i s stable since 2016. 3. Bronchiectasis and mucus plugging in the anterior left upper lobe is unchan ged since 2005. 4. Moderate to advanced chronic emphysematous changes. 5. No mediastinal or hilar lymphadenopathy.
== END 2021-03-03 13:24 | disposition home or self-care (01) ==
PROVIDERS: PCP Internal Medicine; Visit Provider Student in an Organized Health Care Education/Training Program
DX: R91.1 Solitary pulmonary nodule (principal); J47.9 Bronchiectasis, uncomplicated; J98.11 Atelectasis
CPT/HCPCS: 71250

== ENCOUNTER → 2021-04-08 11:54 | Outpatient (BNVA) | payer MEDICARE, OTHER, SELFPAY | PROVIDERS: PCP Nurse Practitioner; Visit Provider Nurse Practitioner | DX: J44.9 Chronic obstructive pulmonary disease, unspecified (principal); I10 Essential (primary) hypertension; R82.90 Unspecified abnormal findings in urine; N39.0 Urinary tract infection, site not specified; I82.409 Acute embolism and thrombosis of unspecified deep veins of unspecified lower extremity | CPT/HCPCS: 80053; 80061; 81000; 82607; 84443; 85025; 87077; 87086; 87184 ==

== ENCOUNTER 2021-04-30 09:22 | Outpatient (CLI) | payer MEDICARE, OTHER, SELFPAY ==
--- NOTE | 2021-04-30 09:35 | USCV_ITS ---
Stacey Benitez Age: 86 Gender: F : 1935 Exam Date: 04/30/2021 10:12 Ordering Phys: Luz Brooks APRN Technologist: Luz Bah Exam Location: [facility] [place]_ Indication: LEFT GROIN PAIN Findings No Abnormalites seen at this time. No hematoma or fistula. Conclusions Normal left groin. Dr. Nneka Dos Santos DO (Electronically Signed) Final Date: 30 April 2021 12:31 S
== END 2021-04-30 09:23 | disposition home or self-care (01) ==
LOC: RAD 09:28
PROVIDERS: PCP Nurse Practitioner; Visit Provider Nurse Practitioner Adult Health
DX: R10.32 Left lower quadrant pain (principal); I72.9 Aneurysm of unspecified site; I71.4 Abdominal aortic aneurysm, without rupture; Z95.828 Presence of other vascular implants and grafts
CPT/HCPCS: 93926; 93978

== ENCOUNTER 2021-04-30 09:29 | Outpatient (CLI) | payer MEDICARE, OTHER, SELFPAY ==
--- NOTE | 2021-04-30 08:45 | USCV_ITS ---
Stacey Benitez Age: 86 Gender: F : 1935 Exam Date: 04/30/2021 09:56 Ordering Phys: Rafa Rucker MD (Andy) ([email or web address]) Technologist: Luz Bah Exam Location: [facility] [place] Indication: H/O AAA HISTORY: Diameter (cm) AP x Transverse x Length Velocity (cm/s) Waveform Prox Aorta: 2.18 x 2.24 x 74.10 Mid Aorta: 1.94 x 2.20 x 62.80 Distal Aorta: x x Right Iliac Prox: x x 58.70 Left Iliac Prox: x x 62.00 Stent Prox Landing x x Aneurysmal Sac Max 4.81 x 5.92 x 10.20 Lt Lat Sac Dim Rt Lat Sac Dim Stent Dist Landing x x Right Iliac Stent 1.04 x 1.29 x Left Iliac Stent 1.24 x 1.26 x Right Renal Art 47.80 Left Renal Art 56.90 FINDINGS: The infrarenal aortic aneurysm sac measured 4.8 x 5.9 cm. The aortic stent graft appeared to be patent The stent graft in the iliac arteries appeared to be patent Normal Doppler flow velocities CONCLUSIONS 1. Patent aortic stent graft in the infrarenal position. 2. The aneurysm sac measured 4.8 x 5.9 x 10.2. 3. No flow signals are noted in the aneurysm sac to suggest any endoleak 4. The iliac limbs of the stent graft's also were found to be patent with a normal flow pattern No similar previous studies are available for comparison Dr Geovany Serrano MD [facility] (Electronically Signed) Final Date: 30 April 2021 19:49 S
== END 2021-04-30 09:30 | disposition home or self-care (01) ==
LOC: RAD 09:30
PROVIDERS: PCP Nurse Practitioner; Visit Provider Thoracic Surgery (Cardiothoracic Vascular Surgery)
DX: I71.4 Abdominal aortic aneurysm, without rupture (principal); Z95.828 Presence of other vascular implants and grafts
CPT/HCPCS: 93978

== ENCOUNTER → 2021-05-07 15:26 | Outpatient (BNVA) | payer MEDICARE, OTHER, SELFPAY | PROVIDERS: PCP Nurse Practitioner; Visit Provider Nurse Practitioner Family | DX: N39.0 Urinary tract infection, site not specified (principal); M19.90 Unspecified osteoarthritis, unspecified site; M25.551 Pain in right hip; M25.552 Pain in left hip; M25.561 Pain in right knee; M25.562 Pain in left knee; Z74.09 Other reduced mobility; N30.00 Acute cystitis without hematuria; M19.91 Primary osteoarthritis, unspecified site; G89.29 Other chronic pain | CPT/HCPCS: 81000 ==

== ENCOUNTER 2021-05-08 16:01 | Observation (INO) | payer MEDICARE, OTHER, SELFPAY ==
[2021-05-08] VITALS (15 sets, daily range): BP systolic 112–163; BP diastolic 56–81; PULSE 76–103; RESP 15–25; TEMP 37.4–37.7; O2SAT 95–99; BMI 30.1
--- NOTE | 2021-05-08 16:03 | W.ED.CHESTPA ---
Documented by User: Senthil Dubose MD 05/11/21 17:22 HPI - Chest Pain General: Chief Complaint: Chest Pain Stated Complaint: INCREASED BP, BURNING IN CHEST, DISCOMFORT R ARM Time Seen by Provider: 05/08/21 16:03 History of Present Illness: HPI narrative: Ms. Ordonez is a 86-year-old lady with significant past medical for CAD, hypertension, hyperlipidemia, COPD with chronic hypoxic respiratory failure, and AAA status post repair presents emergency department due to chest discomfort. Symptom onset was earlier today at rest. She describes a burning sensation across her chest with radiation down the right arm. Mild associated nausea but no vomiting. No other typical cardiac features. Intensity of symptoms was moderate. Course is now improved and has resolution of symptoms. Denies frequent episodes of chest pain. Recent changes in health include being diagnosed yesterday with urinary tract infection and at that time was given steroid course and antibiotics, ?reason for steroids. She did have earlier episode today as well, relieved by nitro. Review of Systems General: Reports: 10 or more systems reviewed and unremarkable except in HPI and below PFSH ED PFSH: Medical History AAA (abdominal aortic aneurysm) Anxiety and depression COPD (chronic obstructive pulmonary disease) Coronary artery disease DVT (deep venous thrombosis) Hyperlipidemia Hypertension Hypothyroidism Obesity Peripheral vascular disease Urinary incontinence, mixed Surgical History History of AAA (abdominal aortic aneurysm) repair September 2020 in [place], [place] History of PTCA Hx of cholecystectomy Hx of heart artery stent Hx of hysterectomy Family History Sister Cancer BREAST Social History Quit status (tobacco): has quit using tobacco Year quit tobacco: 1994 [id number] Second hand smoke exposure: Yes Smoking risk assessment/counseling performed?: Yes Alcohol intake: never Desire information about alcohol rehabilitation?: No Counseling given: No Desire information about substance/drug rehabilitation?: No Counseling given: No Adopted: No Caregiver/support person: No Lives independently: Yes Household members: children Housing: House Marital status: service: No Current occupational status: retired Pets and animals: Yes History of recent travel: No Current gender identity: Female Physical Exam Narrative: EXAM NARRATIVE: GENERAL/CONSTITUTIONAL - well-appearing. No acute distress. Eyes - PERRL, no conjunctival injection ENMT - Atraumatic external nose and ears. Moist mucous membranes NECK - supple. trachea midline CARDIOVASCULAR - regular rate and rhythm. RESPIRATORY -clear to auscultation bilaterally. ABDOMEN/GI - Nontender/Nondistended. MSK - Extremities without obvious deformity or tenderness to palpation SKIN - Warm, Dry NEURO - alert and appropriately oriented. Moves all extremities equally. Course ED course: - Patient was seen and evaluated by me at bedside - Patient placed on cardiac monitors, IV access obtained - Initial evaluation notable for no acute distress, nontoxic appearance. Chest pain not reproducible by palpation on exam - Labs notable for minimal leukocytosis though difficult to interpret in the context of steroid use. Delta troponin negative. BNP minimally elevated. - Imaging notable for no pneumothorax or lobar consolidation - Upon serial reexamination after treatment the patient was similar - Based on patient history, evaluation, labs, and imaging as interpreted the most likely cause of the patient's condition is chest pain with moderate heart score - The results of ED evaluation were discussed with the patient including plan for admission due to requirement for level of care not available if discharged to prevent significant worsening/deterioration. -Patient care handed off to overnight ED physician Dr. Bob pending admission to the hospital Vital Signs: Vital signs: Vital Signs Temperature 97.7 F 05/09/21 16:17 Pulse Rate 86 05/09/21 16:17 Respiratory Rate 16 05/09/21 16:17 Blood Pressure 113/50 05/09/21 16:17 Pulse Oximetry 98 05/09/21 16:17 MDM - Chest Pain Medical Records: Attestation: I reviewed the patient's medical records. Lab Data: Attestation: I reviewed the patient's lab results. Labs: Lab Results 05/08/21 05/08/21 05/08/21 16:25 16:25 16:25 WBC 12.8 10^3/uL H 10 ^3/uL (4.0-10.0) RBC 3.82 10^6/uL L 10 ^6/uL (4.1-5.3) Hgb 11.4 g/dL L g/dL (11.5-15.3) Hct 35.8 % L % (37.0-47.0) MCV 93.7 fl fl (81-99) MCH 29.8 pg pg (28.0-34.0) MCHC 31.8 g/dL g/dL (30.0-36.0) RDW 14.6 % % (12.1-15.1) Plt Count 279 10^3/cmm 10^3 /cmm (130-400) MPV 9.0 fL fL (7.4-10.4) Neut % (Auto) 88.9 % % Lymph % (Auto) 4.2 % % [place] % (Auto) 6.1 % % Eos % (Auto) 0.0 % % Baso % (Auto) 0.1 % % Neut # (Auto) 11.42 10^3/uL H 1 0^3/uL (1.8-7.7) Lymph # (Auto) 0.5 10^3/uL L 10^ 3/uL (0.8-4.8) [place] # (Auto) 0.8 10^3/uL 10^3/ uL (0.2-0.9) Eos # (Auto) 0.0 10^3/uL 10^3/ uL (0.0-0.8) Baso # (Auto) 0.0 10^3/uL 10^3/ uL (0.0-0.1) Nucleated RBC % (a uto) 0 % % Nucleated RBCs # 0.0 /100WBC /100W BC Sodium 138 mmol/L mmol/L (136-145) Potassium 3.9 mmol/L mmol/L (3.5-5.1) Chloride 103 mmol/L mmol/L (98-107) Carbon Dioxide 23 mmol/L mmol/L (22-29) Anion Gap 15.9 (5-19) BUN 20 mg/dL mg/dL (8-23) Creatinine 0.7 mg/dL mg/dL (0.5-0.9) GFR Calculation Not Reportable Glucose 160 mg/dL H mg/dL (65-115) Calculated Osmolal ity 292 mOsm/kg mOsm/ kg (285-295) Calcium 8.2 mg/dL L mg/dL (8.5-10.5) Total Bilirubin 0.2 mg/dL mg/dL (0.15-1.2) AST 11 U/L U/L (0-32) ALT 9 U/L U/L (0-33) Alkaline Phosphata se 110 IU/L H IU/L (35-105) Troponin T Baselin e 13 ng/L H ng/L (0-10) Troponin T 120 [place] Delta Troponin T NT-Pro-B Natriuret Pep 535 pg/mL H pg/mL (0-450) Total Protein 6.0 g/dL L g/dL (6.6-8.7) Albumin 3.4 g/dL L g/dL (3.5-5.2) Globulin 2.6 g/dL g/dL (1.3-4.6) Lipase 28 U/L U/L (13-60) 05/08/21 18:25 WBC RBC Hgb Hct MCV MCH MCHC RDW Plt Count MPV Neut % (Auto) Lymph % (Auto) [place] % (Auto) Eos % (Auto) Baso % (Auto) Neut # (Auto) Lymph # (Auto) [place] # (Auto) Eos # (Auto) Baso # (Auto) Nucleated RBC % (a uto) Nucleated RBCs # Sodium Potassium Chloride Carbon Dioxide Anion Gap BUN Creatinine GFR Calculation Glucose Calculated Osmolal ity Calcium Total Bilirubin AST ALT Alkaline Phosphata se Troponin T Baselin e Troponin T 120 [place] 18.92 ng/L H ng/L (0-10) Delta Troponin T 5.92 ABS# ABS# (0-10) NT-Pro-B Natriuret Pep Total Protein Albumin Globulin Lipase EKG Data^: EKG 1: Attestation: I personally reviewed and interpreted this EKG as follows: EKG interpretation date: 05/08/21 EKG interpretation time: 16:36 Interpretation: Twelve-lead EKG shows a regular rhythm at a rate of 96. IA interval 159, QRS duration 84, QTc 418. Normal axis. Interpretation: Sinus rhythm. Nonspecific ST segment abnormalities. Discharge Plan Discharge Patient Disposition: Admitted As Inpatient Admit Provider: Varghese Coronel Clinical Impression: Chest pain Condition: Stable Discharge Diet: Cardiac and Low Salt Discharge Activity: Increase activity as tolerated Coding Level of Care Code ED Operation Shift Supervisor for Chg Fwd Documented by User: Odell Bob MD 05/08/21 19:27 HPI - Chest Pain General: Chief Complaint: Chest Pain Stated Complaint: INCREASED BP, BURNING IN CHEST, DISCOMFORT R ARM Time Seen by Provider: 05/08/21 16:03 PFSH ED PFSH: Medical History AAA (abdominal aortic aneurysm) Anxiety and depression COPD (chronic obstructive pulmonary disease) Coronary artery disease DVT (deep venous thrombosis) Hyperlipidemia Hypertension Hypothyroidism Obesity Peripheral vascular disease Urinary incontinence, mixed Surgical History History of AAA (abdominal aortic aneurysm) repair September 2020 in [place], [place] History of PTCA Hx of cholecystectomy Hx of heart artery stent Hx of hysterectomy Family History Sister Cancer BREAST Social History Quit status (tobacco): has quit using tobacco Year quit tobacco: 1994 [id number] Second hand smoke exposure: Yes Smoking risk assessment/counseling performed?: Yes Alcohol intake: never Desire information about alcohol rehabilitation?: No Counseling given: No Desire information about substance/drug rehabilitation?: No Counseling given: No Adopted: No Caregiver/support person: No Lives independently: Yes Household members: children Housing: House Marital status: service: No Current occupational status: retired Pets and animals: Yes History of recent travel: No Current gender identity: Female Course Vital Signs: Vital signs: Vital Signs Temperature 97.7 F 05/09/21 16:17 Pulse Rate 86 05/09/21 16:17 Respiratory Rate 16 05/09/21 16:17 Blood Pressure 113/50 05/09/21 16:17 Pulse Oximetry 98 05/09/21 16:17 MDM - Chest Pain MDM Narrative: Medical decision making narrative: Patient presents here with chest pain is also being treated for UTI patient's initial troponin here was 13 and took patient over from Dr. Dubose with the plan to admit for ACS rule out. Lab Data: Labs: Lab Results 05/08/21 05/08/21 05/08/21 16:25 16:25 16:25 WBC 12.8 10^3/uL H 10 ^3/uL (4.0-10.0) RBC 3.82 10^6/uL L 10 ^6/uL (4.1-5.3) Hgb 11.4 g/dL L g/dL (11.5-15.3) Hct 35.8 % L % (37.0-47.0) MCV 93.7 fl fl (81-99) MCH 29.8 pg pg (28.0-34.0) MCHC 31.8 g/dL g/dL (30.0-36.0) RDW 14.6 % % (12.1-15.1) Plt Count 279 10^3/cmm 10^3 /cmm (130-400) MPV 9.0 fL fL (7.4-10.4) Neut % (Auto) 88.9 % % Lymph % (Auto) 4.2 % % [place] % (Auto) 6.1 % % Eos % (Auto) 0.0 % % Baso % (Auto) 0.1 % % Neut # (Auto) 11.42 10^3/uL H 1 0^3/uL (1.8-7.7) Lymph # (Auto) 0.5 10^3/uL L 10^ 3/uL (0.8-4.8) [place] # (Auto) 0.8 10^3/uL 10^3/ uL (0.2-0.9) Eos # (Auto) 0.0 10^3/uL 10^3/ uL (0.0-0.8) Baso # (Auto) 0.0 10^3/uL 10^3/ uL (0.0-0.1) Nucleated RBC % (a uto) 0 % % Nucleated RBCs # 0.0 /100WBC /100W BC Sodium 138 mmol/L mmol/L (136-145) Potassium 3.9 mmol/L mmol/L (3.5-5.1) Chloride 103 mmol/L mmol/L (98-107) Carbon Dioxide 23 mmol/L mmol/L (22-29) Anion Gap 15.9 (5-19) BUN 20 mg/dL mg/dL (8-23) Creatinine 0.7 mg/dL mg/dL (0.5-0.9) GFR Calculation Not Reportable Glucose 160 mg/dL H mg/dL (65-115) Calculated Osmolal ity 292 mOsm/kg mOsm/ kg (285-295) Calcium 8.2 mg/dL L mg/dL (8.5-10.5) Total Bilirubin 0.2 mg/dL mg/dL (0.15-1.2) AST 11 U/L U/L (0-32) ALT 9 U/L U/L (0-33) Alkaline Phosphata se 110 IU/L H IU/L (35-105) Troponin T Baselin e 13 ng/L H ng/L (0-10) Troponin T 120 [place] Delta Troponin T NT-Pro-B Natriuret Pep 535 pg/mL H pg/mL (0-450) Total Protein 6.0 g/dL L g/dL (6.6-8.7) Albumin 3.4 g/dL L g/dL (3.5-5.2) Globulin 2.6 g/dL g/dL (1.3-4.6) Lipase 28 U/L U/L (13-60) 05/08/21 18:25 WBC RBC Hgb Hct MCV MCH MCHC RDW Plt Count MPV Neut % (Auto) Lymph % (Auto) [place] % (Auto) Eos % (Auto) Baso % (Auto) Neut # (Auto) Lymph # (Auto) [place] # (Auto) Eos # (Auto) Baso # (Auto) Nucleated RBC % (a uto) Nucleated RBCs # Sodium Potassium Chloride Carbon Dioxide Anion Gap BUN Creatinine GFR Calculation Glucose Calculated Osmolal ity Calcium Total Bilirubin AST ALT Alkaline Phosphata se Troponin T Baselin e Troponin T 120 [place] 18.92 ng/L H ng/L (0-10) Delta Troponin T 5.92 ABS# ABS# (0-10) NT-Pro-B Natriuret Pep Total Protein Albumin Globulin Lipase Discharge Plan Discharge Patient Disposition: Admitted As Inpatient Admit Provider: Varghese Coronel Clinical Impression: Chest pain Condition: Stable Discharge Diet: Cardiac and Low Salt Discharge Activity: Increase activity as tolerated Coding Level of Care Code ED Operation Shift Supervisor for Chg Fwcathy
--- NOTE | 2021-05-08 16:09 | ECG_ITS ---
[facility] Test Date: 2021-05-08 Pat Name: Stacey Ordonez Department: Room: Gender: Female Research Methodologist: : 1935 Requested By: Senthil Dubose Order Number: [id number] Brooke MD: Rubén Killian M.D. Measurements Intervals [place] Rate: 96 P: 70 PA: 159 QRS: 26 QRSD: 84 T: 80 QT: 364 QTc: 462 Interpretive Statements SINUS RHYTHM Compared to ECG 05/24/2020 17:35:42 Myocardial infarct finding no longer present Electronically Signed On 05-09-2021 22:47:02 CDT by Rubén Killian M.D. [id number]
--- NOTE | 2021-05-08 16:09 | XR_ITS ---
WS: [id number] Portable AP upright chest, 05/08/2021 Clinical Data: chest pain Comparison: Portable chest, 05/24/2020. Findings: No nodules, masses or effusions are seen. The heart is normal. The pulmonary vascularity is not increased. No pneumonia or pneumothorax is seen. The aortic arch and descending thoracic aorta s how calcification and tortuosity. The diaphragms are flattened. Monitor leads are on the chest wall. XR/XR chest 1V portable [id number] Impression: Atherosclerosis and hyperinflation.
[2021-05-08 16:33] LABS: Basophils % 0.1 %; Hematocrit 35.8 % (37.0-47.0); Hemoglobin 11.4 g/dL (11.5-15.3); Lymphocytes # 0.5 10^3/uL (0.8-4.8); Lymphocytes % 4.2 %; Mean Corpuscular HGB Conc 31.8 g/dL (30.0-36.0); Mean Corpuscular Hemoglobin 29.8 pg (28.0-34.0); Mean Corpuscular Volume 93.7 fl (81-99); Monocytes # 0.8 10^3/uL (0.2-0.9); Monocytes % 6.1 %; Neutrophils # 11.42 10^3/uL (1.8-7.7); Neutrophils % 88.9 %; Nucleated Red Blood Cells % 0 %; Platelet Count 279 10^3/cmm (130-400); Red Blood Count 3.82 10^6/uL (4.1-5.3); Red Cell Distribution Width 14.6 % (12.1-15.1); White Blood Count 12.8 10^3/uL (4.0-10.0)
[2021-05-08 16:54] LABS: Troponin(5th) Baseline 13 ng/L (0-10)
[2021-05-08 17:03] LABS: Alanine Aminotransferase 9 U/L (0-33); Albumin Level 3.4 g/dL (3.5-5.2); Alkaline Phosphatase 110 IU/L (35-105); Anion Gap 15.9 (5-19); Aspartate Amino Transferase 11 U/L (0-32); Blood Urea Nitrogen 20 mg/dL (8-23); Calcium 8.2 mg/dL (8.5-10.5); Carbon Dioxide 23 mmol/L (22-29); Chloride 103 mmol/L (98-107); Globulin 2.6 g/dL (1.3-4.6); Glucose 160 mg/dL (65-115); Lipase 28 U/L (13-60); NT Pro B Type Natriuretic Pept 535 pg/mL (0-450); Osmolality Calculated 292 mOsm/kg (285-295); Potassium 3.9 mmol/L (3.5-5.1); Sodium 138 mmol/L (136-145); Total Bilirubin 0.2 mg/dL (0.15-1.2)
[2021-05-08] MEDS: cefTRIAXone 1,000 MG in sodium chloride 0.9% (plus) 50 ML 100 MG IV (18:45)
[2021-05-08] MEDS: acetaminophen 325 mg Tablet 650 MG PO (18:46)
[2021-05-08 19:29] LABS: Troponin 5 2HR 18.92 ng/L (0-10); Troponin 5 2HR Delta 5.92 ABS# (0-10)
[2021-05-08] MEDS: calcium carbonate 500 mg Chew Tablet 1000 MG PO ×2 (20:40→23:40)
--- NOTE | 2021-05-08 21:44 | PC.NURSE ---
Patient arrived to the floor from the ED after report was received via phone. Patient is alert and oriented and in SR. Patient states that she is currently taking antibiotics at home for a UTI. Patient states that she sometimes has to wear a brief for urinary incontinence at home and is always constipated. She wears 2 L NC at home and is currently on the same amount. She has been educated to not get up without assistance, has been oriented to her room, and has call light within reach. Dr. Macias came to room to see patient.
--- NOTE | 2021-05-08 22:04 | CTR_ITS ---
PROCEDURE INFORMATION: Exam: CTA Chest With Contrast Exam date and time: 05/08/2021 10:04 PM Age: 86 years old Clinical indication: Pain and abnormal findings; Abnormal diagnostic tests; Elevated d-dimer; Chest pressure; Prior surgery; Surgery type: Coronary stents; Patient HX: Chest discomfort with elevated d dimer. Chronic history of dvt. ; Additional info: Evalute for pe, chest pain, chronic dvt TECHNIQUE: Imaging protocol: Computed tomographic angiography of the chest with contrast. 3D rendering (Not supervised by radiologist): MIP and/or 3D reconstructed images were created by the technologist. Radiation optimization: All CT scans at this facility use at least one of these dose optimization techniques: automated exposure control; mA and/or kV adjustment per patient size (includes targeted exams where dose is matched to clinical indication); or iterative reconstruction. Contrast material: OMNI 350; Contrast volume: 70 ml; Contrast route: INTRAVENOUS (IV); COMPARISON: CT chest wo con [id number] 03/03/2021 1:38 PM RADIATION DOSE METRICS: Total DLP (mGy-cm): 596.89 FINDINGS: Pulmonary arteries: Normal. No pulmonary emboli. Aorta: Suspected abdominal aortic aneurysm incompletely visualized. Lungs: Emphysematous changes. Bilateral dependent atelectasis versus minimal infiltrate. Pleural spaces: Unremarkable. No pneumothorax. No pleural effusion. Heart: Coronary artery atherosclerotic calcifications. Lymph nodes: Unremarkable. No enlarged lymph nodes. Bones/joints: Unremarkable. No acute fracture. Soft tissues: Cholecystectomy. CT/CT angio chest PE protcl [id number] IMPRESSION: 1. Negative for pulmonary embolus or airspace infiltrate. 2. Suspected abdominal aortic aneurysm incompletely visualized. 3. Emphysematous changes. 4. Bilateral dependent atelectasis versus minimal infiltrate. 5. Coronary artery atherosclerotic calcifications. 6. Cholecystectomy. Radiation Dose CTDIVOL = (mGy): DLP = 596.89 (mGy-cm)
--- NOTE | 2021-05-08 22:09 | ECG_ITS ---
[facility] Test Date: 2021-05-09 Pat Name: Stacey Ordonez Department: Room: 107 Gender: Female Shoe Folder: : 1935 Requested By: Senthil Dubose Order Number: [id number] Brooke MD: Rubén Killian M.D. Measurements Intervals [place] Rate: 70 P: 71 [place]: 180 QRS: 23 QRSD: 80 T: 73 QT: 386 QTc: 418 Interpretive Statements SINUS RHYTHM Compared to ECG 05/08/2021 16:33:22 No significant changes Electronically Signed On 05-09-2021 22:49:33 CDT by Rubén Killian M.D. [id number]
--- NOTE | 2021-05-08 23:05 | PM.HP ---
Providers/Chief Complaint Admitting Physician: Varghese Coronel MD Primary Care Provider: Bakari Oneil, HEAVY EQUIPMENT OPERATOR/PAVER-C Chief Complaint: INCREASED BP, BURNING IN CHEST, DISCOMFORT R ARM History of Present Illness Stacey Ordonez is a 86 year old female with PMH HTN, CAD, COPD, AAA, H/O DVT, Hyperlipidemia, Hypothyroidism, PVD, presented to ER with chief complaints of chest discomfort. Describes a sensation to be a burning sensation in the upper chest, radiating into the right arm, that started suddenly at rest while she was laying in her recliner. No apparent exacerbating or relieving factors. No worsening in pain with deep inspiration. Pain was relieved eventually after presentation to the ER, likely after sublingual nitroglycerin. EKG did not show any acute ST-T wave changes. 2-hour delta troponin currently at 5. 6-hour troponin is pending. Patient denies any other complaints of dyspnea palpitations or syncope. Denies any recent worsening in cough or expectoration. Oxygen requirement currently at her chronic baseline of 2 L/min. States that her temperature has been couple of degrees over her usual , noted to be T-max of 99.9 here in the hospital. She is currently on treatment with Macrobid for a UTI diagnosed 2 days ago with her PCP. She also has a history of chronic lower extremity DVT for which she is on Pradaxa. She reports compliance with twice daily dosing. States her left lower extremity is typically slightly more swollen than the right chronically since her AAA repair in September 2020. She is unvaccinated for COVID-19. Review of Systems General: Reports: 10 or more systems reviewed and unremarkable except in HPI and below Const: Denies: fever(s), chills or body aches Eyes: Denies: change in vision, blurry vision or photophobia ENMT: Reports: hoarseness; Denies: throat pain, enlarged tonsils, odynophagia or nasal congestion Card: Denies: chest pain, palpitations, irregular heart rhythm, edema, swelling of feet/ankles, lightheadedness, pre-syncope, dyspnea on exertion or orthopnea Resp: Denies: dyspnea, productive cough, non-productive cough, wheezing, stridor, pain on inspiration, change in phlegm color, hemoptysis or chest congestion GI: Denies: abdominal pain, nausea, vomiting, hematemesis, coffee ground emesis, dysphagia, heartburn, diarrhea, constipation, GI cramping, change in stool character, hematochezia or melena : Denies: flank pain, difficulty voiding, dysuria, urinary frequency, urinary urgency, urinary hesitancy or hematuria Musc: Denies: neck pain, back pain, extremity pain, joint swelling, joint warmth or deformity Neuro: Denies: headache(s), numbness in extremities, weakness in extremities, sensory changes, difficulty walking, frequent falls, dizziness, vertigo, behavioral changes, Slurred speech present or seizure-like activity Psych: Denies: anxiety, depression, suicidal ideation or homicidal ideation Endo: Denies: polyuria, polydipsia, tired all the time, cold intolerance or hot flashes Fernando/Lymph: Denies: easy bruising or easy bleeding Medications/Allergies Home Medications Medication Instructions Recorded Confirmed Last Taken Type Vitamin D3 1 cap PO DAILY 05/24/20 05/08/21 05/08/21 History acetaminophen [Tylenol Extra 1,000 mg PO PRN 05/24/20 05/08/21 05/22/20 History Strength] dabigatran etexilate [Pradaxa] 150 mg PO BID 05/24/20 05/08/21 05/08/21 History losartan 50 mg PO DAILY 05/24/20 05/08/21 05/08/21 History magnesium oxide 600 mg PO DAILY 05/24/20 05/08/21 Unknown History nitroglycerin 0.4 mg SUBLINGUAL PRN PRN 05/24/20 05/08/21 05/08/21 History albuterol sulfate 90 mcg/actuation 2 puff INHALATION Q6H PRN #8.5 g 05/07/21 05/08/21 Unknown Rx aerosol inhaler fluticasone 250 mcg-salmeterol 50 1 inh INHALATION Q12H #60 ea 05/07/21 05/08/21 Unknown Rx mcg/dose blistr powdr for inhalation nitrofurantoin 100 mg PO Q12H 7 Days #14 cap 05/07/21 05/08/21 05/08/21 Rx monohydrate/macrocrystals 100 mg capsule prednisone 20 mg tablet 20 mg PO BID #6 tab 05/07/21 05/08/21 05/08/21 Rx alprazolam 2 mg PO BID PRN 05/08/21 05/08/21 Unknown History sulfamethoxazole-trimethoprim tab 05/08/21 05/08/21 Unknown History Allergies Allergy/AdvReac Type Severity Reaction Status Date / Time aspirin Allergy ADR-Gastrointestinal Verified 05/07/21 15:29 Upset PFSH Acute PFSH: Medical History AAA (abdominal aortic aneurysm) Anxiety and depression COPD (chronic obstructive pulmonary disease) Coronary artery disease DVT (deep venous thrombosis) Hyperlipidemia Hypertension Hypothyroidism Obesity Peripheral vascular disease Urinary incontinence, mixed Surgical History History of AAA (abdominal aortic aneurysm) repair September 2020 in [place], [place] History of PTCA Hx of cholecystectomy Hx of heart artery stent Hx of hysterectomy Family History Sister Cancer BREAST Social History Quit status (tobacco): has quit using tobacco Year quit tobacco: 1994 [id number] Second hand smoke exposure: Yes Smoking risk assessment/counseling performed?: Yes Alcohol intake: never Desire information about alcohol rehabilitation?: No Counseling given: No Desire information about substance/drug rehabilitation?: No Counseling given: No Adopted: No Caregiver/support person: No Lives independently: Yes Household members: children Housing: House Marital status: service: No Current occupational status: retired Pets and animals: Yes History of recent travel: No Current gender identity: Female Vitals/I&O/Wt Last Vital Signs Temp 99.4 F 05/08/21 19:57 Pulse 82 05/08/21 20:47 Resp 18 05/08/21 20:47 BP 125/73 05/08/21 20:47 Pulse Ox 98 05/08/21 20:47 05/08/21 05/08/21 05/09/21 14:59 22:59 06:59 Intake Total 50 / 50 Balance 50 / 50 Weight last 48 hrs Weight 81.828 kg Weight 77.111 kg Physical Exam Narrative: EXAM NARRATIVE: General: No acute distress, AO x3 HEENT: PERRLA, pupils bilaterally equal and reactive, pallors not present Chest: Normal vesicular breath sounds, no added sounds, equal good air entry bilaterally CVS: S1-S2 regular, no murmurs, no tachycardia, no gallops, no rubs Abdomen: Soft, nontender, no organomegaly, bowel sounds present Neuro: No focal deficits, no facial deformity, AO x3, power 5/5 in all limbs Data : 05/08/21 16:25 05/08/21 16:25 A&P Assessment and plan (1) Chest pain: Presenting with central chest pain radiating into right arm. Given past medical history of CAD, hypertension, COPD, she is high risk for cardiac events and therefore will need to exclude ACS. EKG today without acute ST-T wave changes. Baseline troponin at 13, 2-hour at 18, 2-hour delta of 5.9, pending 6-hour delta. Clinically appears to be euvolemic. Given h/o chronic DVT, will additionally obtain CTA chest to assess for PE. Status: Acute Qualifiers: Chest pain type: unspecified Qualified Code(s): R07.9 - Chest pain, unspecified (2) COPD (chronic obstructive pulmonary disease): Not currently exacerbated. DuoNeb inhalation every 4 schedule, budesonide inhalation every 12 scheduled Status: Chronic Qualifiers: COPD type: emphysema Emphysema type: unspecified Qualified Code(s): J43.9 - Emphysema, unspecified (3) UTI (urinary tract infection): UA performed on 05/07/2021 with positive leuk esterase, positive nitrate, together with dysuria and T-max 99.4-99.9 concerning for urinary tract infection. Most recent urine cultures from March 2021 with ESBL E. coli. She has received 1 dose of ceftriaxone in the ER. We will switch antibiotic therapy to ciprofloxacin 500 mg p.o. twice daily based on last available susceptibility. Fresh urine culture has been ordered today. Status: Acute Qualifiers: Urinary tract infection type: acute cystitis Hematuria presence: with hematuria Qualified Code(s): N30.01 - Acute cystitis with hematuria Additional A&P Information Dvt ppx: Currently on Pradaxa which is continued Attestations Medical Necessity Statement*: Observation admission for evaluation of chest pain, UTI treatment Coding Level of Care Code Acute Propeller Inspector for [facility] Diagnoses Chest pain R07.9 Chest pain type: unspecified COPD (chronic obstructive pulmonary disease) J43.9 COPD type: emphysema Emphysema type: unspecified UTI (urinary tract infection) N30.01 Urinary tract infection type: acute cystitis Hematuria presence: with hematuria
[2021-05-08 23:13] LABS: Troponin 5 6HR 18.77 ng/L (0-10); Troponin 5 6HR Delta 5.77 ng/L (0-12)
[2021-05-08] MEDS: iohexol 350 mg/mL 100 mL Btl IV (23:16)
[2021-05-08 23:23] LABS: Add Urine Microscopic? NO; Charge for UA Resulting for Rev
[2021-05-08] MEDS: pantoprazole DR 40 mg Tablet PO (23:37)
[2021-05-08 23:50] LABS: Bilirubin Urine Neg (Negative); Blood Urine Neg (Negative); Glucose Urine UA Norm (Normal); Ketones Urine Negative (Negative); Leukocyte Esterase Urine Negative (Negative); Nitrate Urine Negative (Negative); Protein Urine Neg (Negative); Urine Appearance Clear (CLEAR); Urine Color Yellow (Yellow); Urobilinogen Urine Norm (Negative); pH Urine 6.5 (5-7)
[2021-05-08] MEDS: ipratropium-albuterol 3 mL Neb INHALATION (23:58)
--- NOTE | 2021-05-08 23:59 | PC.NURSE ---
Dr. Macias notified of patient asking for a mild laxative.
[2021-05-09] VITALS (13 sets, daily range): BP systolic 113–147; BP diastolic 50–80; PULSE 67–118; RESP 15–23; TEMP 36.4–36.5; O2SAT 94–99
--- NOTE | 2021-05-09 00:02 | PC.NURSE ---
Patient c/o heart burn upon arrival on the floor from the ED. Patient was given Tums per order. Patient then stated her heartburn was gone. While coming back from CT in wheelchair, patient stated that she had heartburn again. When arriving to patient's room, she stated, I have really bad chest pain. Went to get Tums and Protonix for patient per order. When entering the room to give patient the medications, the patient stated that her pain was gone. Patient still requested the Tums.
[2021-05-09] MEDS: sennosides-docusate Tablet 1 TAB PO (02:11)
[2021-05-09] MEDS: ALPRAZolam 0.5 mg Tablet 0.25 MG PO (02:17)
[2021-05-09 05:03] LABS: Eosinophils % 0.1 %; Lymphocytes # 1.4 10^3/uL (0.8-4.8); Monocytes # 1.2 10^3/uL (0.2-0.9); Nucleated Red Blood Cells % 0 %; Red Cell Distribution Width 14.7 % (12.1-15.1)
[2021-05-09 05:09] LABS: Basophils % 0.2 %; Hematocrit 38.6 % (37.0-47.0); Hemoglobin 12.2 g/dL (11.5-15.3); Lymphocytes % 9.7 %; Mean Corpuscular HGB Conc 31.6 g/dL (30.0-36.0); Mean Corpuscular Hemoglobin 30.2 pg (28.0-34.0); Mean Corpuscular Volume 95.5 fl (81-99); Mean Platelet Volume 9.1 fL (7.4-10.4); Monocytes % 8.2 %; Neutrophils % 81.1 %; Platelet Count 295 10^3/cmm (130-400); Red Blood Count 4.04 10^6/uL (4.1-5.3); White Blood Count 14.6 10^3/uL (4.0-10.0)
[2021-05-09 05:10] LABS: Neutrophils # 11.86 10^3/uL (1.8-7.7)
[2021-05-09 05:40] LABS: Alanine Aminotransferase 11 U/L (0-33); Albumin Level 3.6 g/dL (3.5-5.2); Alkaline Phosphatase 124 IU/L (35-105); Anion Gap 13.3 (5-19); Aspartate Amino Transferase 14 U/L (0-32); Blood Urea Nitrogen 20 mg/dL (8-23); Calcium 8.8 mg/dL (8.5-10.5); Carbon Dioxide 25 mmol/L (22-29); Chloride 107 mmol/L (98-107); Globulin 2.6 g/dL (1.3-4.6); Glucose 111 mg/dL (65-115); Osmolality Calculated 295 mOsm/kg (285-295); Potassium 4.3 mmol/L (3.5-5.1); Sodium 141 mmol/L (136-145); Total Bilirubin 0.2 mg/dL (0.15-1.2); Total Protein 6.2 g/dL (6.6-8.7)
--- NOTE | 2021-05-09 07:30 | USCV_ITS ---
Stacey Ordonez Age: 86 Gender: F : 1935 Exam Date: 05/09/2021 14:52 Ordering Phys: Abhijit Coleman MD Technologist: MELINA Exam Location: [facility] [place] Indication: LLE SWELLING HISTORY: Lower extremity swelling. PROCEDURES: Venous duplex imaging was performed in only the left lower extremity. The following venous structures were evaluated: common femoral vein, profunda vein, proximal portion of the greater saphenous vein, superficial femoral vein, and the popliteal vein. In addition, the posterior tibial and peroneal trunk were evaluated. Serial compression, augmentation maneuvers, and spectral Doppler flow evaluation were performed. FINDINGS: + NON COMPRESS DVT SEEN IN LEFT CFV, SFV PROX-DIST. ALL OTHER VEINS APPEAR PATENT CONCLUSIONS Acute DVT Left common femoral vein extending into femoral vein to the distal thigh. Remainder LLE veins are patent. D/w Dr Coleman at 455pm Ayo Wong MD (Electronically Signed) Final Date: 09 May 2021 16:57 S
--- NOTE | 2021-05-09 08:05 | PC.RESP ---
No documentation of 0300 dose of duoneb.
[2021-05-09] MEDS: budesonide 0.5 mg/2 mL Neb INHALATION (08:31)
[2021-05-09] MEDS: ipratropium-albuterol 3 mL Neb INHALATION ×2 (08:31→15:22)
--- NOTE | 2021-05-09 08:45 | USCV_ITS ---
Stacey Ordonez Age: 86 Gender: F : 1935 Exam Date: 05/09/2021 15:03 Ordering Phys: Abhijit Coleman MD Technologist: Luz Bah Exam Location: [facility] [place] Indication: ANGINA BP: 114 / 70 HR: 81 Rhythm: Sinus Technical Quality: Technically difficult study MEASUREMENTS (Male / Female) Normal Values 2D ECHO LVOT Diameter 2.0 cm LV Ejection Fraction MOD 2C 52.4 % LV Ejection Fraction 2C AL 54.2 % LA Diameter 2.6 cm LA Width 2.4 cm LA Height 3.6 cm RA Width 3.2 cm RA Height 4.2 cm Aorta at Sinotubular Diameter 1.8 cm DOPPLER AV Peak Velocity 173.0 cm/s LVOT Peak Velocity 111.0 cm/s AV Area Cont Eq vti 2.7 cm squared AV Area Cont Eq pk 2.0 cm squared MV Peak Velocity 111.0 cm/s MV Area PHT 2.6 cm squared Mitral E to A Ratio 0.7 MV E' Velocity 46.0 cm/s Mitral E to MV E' Ratio 9.3 Mitral E to LV E' Lateral Ratio 8.9 Mitral E to LV E' Septal Ratio 9.8 TR Peak Velocity 164.6 cm/s TR Peak Gradient 10.8 mmHg TR Mean Velocity 141.5 cm/s TR Mean Gradient 8.1 mmHg TR Velocity Time Integral 45.4 cm TV Peak E Velocity 44.0 cm/s Right Atrial Pressure 3.0 mmHg Pulmonary Artery Systolic Pressu 13.8 mmHg FINDINGS Left Ventricle Normal left ventricular size. LV systolic function is normal with EF of 55-60%. No regional wall motion abnormalities. Grade 1 diastolic dysfunction Right Ventricle The right ventricle is normal in size and function. Right Atrium The right atrium is normal in size. Left Atrium The left atrium is normal in size. Mitral Valve Structurally normal mitral valve without significant stenosis or prolapse. There is trace mitral regurgitation. Aortic Valve Grossly normal without stenosis. There is no aortic regurgitation. Tricuspid Valve Structurally normal tricuspid valve without significant stenosis . Trace tricuspid regurgitation. Insufficient TR jet to calculate RVSP Pulmonic Valve Structurally normal pulmonic valve without significant stenosis. There is no pulmonic regurgitation. Pericardium Normal pericardium without effusion. Aorta Normal ascending aorta dimension. CONCLUSIONS LV systolic function is normal with EF of 55-60% Grade 1 diastolic dysfunction Trace mitral regurgitation No comparison studies are available Rubén Killian MD (Electronically Signed) Final Date: 09 May 2021 17:56 S
--- NOTE | 2021-05-09 08:48 | P.DS_ITS ---
Discharge Providers Date of Admission: 05/08/21 18:52 Date of Discharge: May 09, 2021 Attending Provider at Admission: Varghese Coronel MD Attending Provider at Discharge: Abhijit Coleman MD Primary Care Provider: SINAN Davis Diagnoses at Discharge Discharge Diagnosis (1) Chest pain: Status: Acute Qualifiers: Chest pain type: unspecified Qualified Code(s): R07.9 - Chest pain, unspecified (2) COPD (chronic obstructive pulmonary disease): Status: Chronic Qualifiers: COPD type: emphysema Emphysema type: unspecified Qualified Code(s): J43.9 - Emphysema, unspecified (3) UTI (urinary tract infection): Status: Acute Qualifiers: Hematuria presence: with hematuria Urinary tract infection type: acute cystitis Qualified Code(s): N30.01 - Acute cystitis with hematuria Reason for Visit Reason for Visit: INCREASED BP, BURNING IN CHEST, DISCOMFORT R ARM Hospital Course Hospital Course History of Present Illness by Dr Colleen Ibarra Alida Ordonez is a 86 year old female with PMH HTN, CAD, COPD, AAA, H/O DVT, Hyperlipidemia, Hypothyroidism, PVD, presented to ER with chief complaints of chest discomfort. Describes a sensation to be a burning sensation in the upper chest, radiating into the right arm, that started suddenly at rest while she was laying in her recliner. No apparent exacerbating or relieving factors. No worsening in pain with deep inspiration. Pain was relieved eventually after presentation to the ER, likely after sublingual nitroglycerin. EKG did not show any acute ST-T wave changes. 2-hour delta troponin currently at 5. 6-hour troponin is pending. Patient denies any other complaints of dyspnea palpitations or syncope. Denies any recent worsening in cough or expectoration. Oxygen requirement currently at her chronic baseline of 2 L/min. States that her temperature has been couple of degrees over her usual , noted to be T-max of 99.9 here in the hospital. She is currently on treatment with Macrobid for a UTI diagnosed 2 days ago with her PCP. She also has a history of chronic lower extremity DVT for which she is on Pradaxa. She reports compliance with twice daily dosing. States her left lower extremity is typically slightly more swollen than the right chronically since her AAA repair in September 2020. She is unvaccinated for COVID-19. HOSP COURSE: Patient was admitted for evaluation of chest pain. EKG without ischemic or i nfarctive changes, troponin without significant delta & echo is pending. I have requested venous Dopplers. At the time of my evaluation patient is feeling fine she is calm, she is asymptomatic, no active chest pain hemodynamically stable. She is wanting to go home. We will give her cardiology referral outpatient stress test and will discharge after echo today. I have requested venous Doppler because of her persistent left lower extremity swelling. She is not tachycardic. She is saturating well on room air.CTA neg for PE. I have added Imdur antianginal medication at the time of discharge. Physical Exam Narrative: EXAM NARRATIVE: No shortness of breath No audible stridor or wheezing Abdomen soft No joint swelling Nonfocal neuro exam No chest pain Hemodynamically stable Appears stated age Very pleasant cooperative during my evaluation Discharge Data Data Completed and Pending: Completed Studies During Hospitalization Category Date Time Status CT angio chest PE protcl [id number] Rout ine Cat Scan 05/08/21 22:04 Completed XR chest 1V radha ble [id number] Stat Exams 05/08/21 16:09 Completed Pending at discharge Category Date Time Status Sestamibi Stress Test Request Routi ne Exams 05/10/21 06:00 Stop Req Coronavirus Test [facility] Routi ne Lab 05/08/21 23:00 Received Urine Culture Sta t Lab 05/08/21 23:00 [place] [id number] Routin e Ultrasound 05/09/21 07:30 Ordered CV. echo complete * [id number] Routine Ultrasound 05/09/21 08:45 Ordered Labs from last 24 hours 05/09/21 05/09/21 05/08/21 04:27 04:27 23:00 WBC 14.6 H RBC 4.04 L Hgb 12.2 Hct 38.6 MCV 95.5 MCH 30.2 MCHC 31.6 RDW 14.7 Plt Count 295 MPV 9.1 Neut % (Auto) 81.1 Lymph % (Auto) 9.7 [place] % (Auto) 8.2 Eos % (Auto) 0.1 Baso % (Auto) 0.2 Neut # (Auto) 11.86 H Lymph # (Auto) 1.4 [place] # (Auto) 1.2 H Eos # (Auto) 0.0 Baso # (Auto) 0.0 Nucleated RBC % (a uto) 0 Nucleated RBCs # 0.0 Sodium 141 Potassium 4.3 Chloride 107 Carbon Dioxide 25 Anion Gap 13.3 BUN 20 Creatinine 0.6 GFR Calculation Not Reportable Glucose 111 Calculated Osmolal ity 295 Calcium 8.8 Total Bilirubin 0.2 AST 14 ALT 11 Alkaline Phosphata se 124 H Troponin T Baselin e Troponin T 120 Min three affiliated Delta Troponin T Troponin T Hi Sens 6Hr Troponin T Hi Sens 6Hr Delta NT-Pro-B Natriuret Pep Total Protein 6.2 L Albumin 3.6 Globulin 2.6 Lipase Urine Color Urine Appearance Urine pH Ur Specific Gravit y Urine Protein Urine Glucose (UA) Urine Ketones Urine Blood Urine Nitrate Urine Bilirubin Urine Urobilinogen Ur Leukocyte Veronique ase Nasal/Oral COVID-1 9 PCR Pending 05/08/21 05/08/21 05/08/21 23:00 22:12 18:25 WBC RBC Hgb Hct MCV MCH MCHC RDW Plt Count MPV Neut % (Auto) Lymph % (Auto) [place] % (Auto) Eos % (Auto) Baso % (Auto) Neut # (Auto) Lymph # (Auto) [place] # (Auto) Eos # (Auto) Baso # (Auto) Nucleated RBC % (a uto) Nucleated RBCs # Sodium Potassium Chloride Carbon Dioxide Anion Gap BUN Creatinine GFR Calculation Glucose Calculated Osmolal ity Calcium Total Bilirubin AST ALT Alkaline Phosphata se Troponin T Baselin e Troponin T 120 Min three affiliated 18.92 H Delta Troponin T 5.92 Troponin T Hi Sens 6Hr 18.77 H Troponin T Hi Sens 6Hr Delta 5.77 NT-Pro-B Natriuret Pep Total Protein Albumin Globulin Lipase Urine Color Yellow Urine Appearance Clear Urine pH 6.5 Ur Specific Gravit y 1.010 Urine Protein Neg Urine Glucose (UA) Norm Urine Ketones Negative Urine Blood Neg Urine Nitrate Negative Urine Bilirubin Neg Urine Urobilinogen Norm Ur Leukocyte Veronique ase Negative Nasal/Oral COVID-1 9 PCR 05/08/21 05/08/21 05/08/21 16:25 16:25 16:25 WBC 12.8 H RBC 3.82 L Hgb 11.4 L Hct 35.8 L MCV 93.7 MCH 29.8 MCHC 31.8 RDW 14.6 Plt Count 279 MPV 9.0 Neut % (Auto) 88.9 Lymph % (Auto) 4.2 [place]ham % (Auto) 6.1 Eos % (Auto) 0.0 Baso % (Auto) 0.1 Neut # (Auto) 11.42 H Lymph # (Auto) 0.5 L [place] # (Auto) 0.8 Eos # (Auto) 0.0 Baso # (Auto) 0.0 Nucleated RBC % (a uto) 0 Nucleated RBCs # 0.0 Sodium 138 Potassium 3.9 Chloride 103 Carbon Dioxide 23 Anion Gap 15.9 BUN 20 Creatinine 0.7 GFR Calculation Not Reportable Glucose 160 H Calculated Osmolal ity 292 Calcium 8.2 L Total Bilirubin 0.2 AST 11 ALT 9 Alkaline Phosphata se 110 H Troponin T Baselin e 13 H Troponin T 120 Min three affiliated Delta Troponin T Troponin T Hi Sens 6Hr Troponin T Hi Sens 6Hr Delta NT-Pro-B Natriuret Pep 535 H Total Protein 6.0 L Albumin 3.4 L Globulin 2.6 Lipase 28 Urine Color Urine Appearance Urine pH Ur Specific Gravit y Urine Protein Urine Glucose (UA) Urine Ketones Urine Blood Urine Nitrate Urine Bilirubin Urine Urobilinogen Ur Leukocyte Veronique ase Nasal/Oral COVID-1 9 PCR Vitals: Last Vital Signs Temp 97.6 F 05/09/21 03:33 Pulse 67 05/09/21 05:17 Resp 20 H 05/09/21 03:33 BP 130/68 05/09/21 03:33 Pulse Ox 99 05/09/21 03:33 Discharge Plan Discharge Patient Disposition: Home Condition: Stable Prescriptions: New isosorbide mononitrate 10 mg tablet 5 mg PO BID Qty: 60 RF: 0 Continued prednisone 20 mg tablet 20 mg PO BID Qty: 6 RF: 0 nitrofurantoin monohyd/m-cryst [Macrobid] 100 mg capsule 100 mg PO Q12H 7 Days Qty: 14 RF: 0 albuterol sulfate [Ventolin HFA] 90 mcg/actuation HFA aerosol inhaler 2 puff inhalation Q6H PRN (Reason: shortness of breath or wheezing) Qty: 8.5 RF: 5 fluticasone propion-salmeterol [Advair Diskus] 250-50 mcg/dose blister with device 1 inh inhalation Q12H Qty: 60 RF: 2 alprazolam 2 mg tablet 2 mg PO BID PRN (Reason: Anxiety) RF: 0 losartan 50 mg tablet 50 mg PO DAILY RF: 0 acetaminophen [Tylenol Extra Strength] 500 mg Tablet 1,000 mg PO PRN RF: 0 nitroglycerin 0.4 mg tablet, sublingual 0.4 mg sublingual PRN PRN (Reason: Chest Pain) RF: 0 cholecalciferol (vitamin D3) [Vitamin D3] 25 mcg (1,000 unit) Capsule 25 mcg PO DAILY Qty: 0 RF: 0 Pradaxa 150 mg Capsule 150 mg PO BID RF: 0 Discharge Orders: Discharge Order (Routine); Ordered 05/09/21 Ordered By: Abhijit Coleman Other Ambulatory Orders: Sestamibi Stress Test Request (Routine) Timeframe: 3 Days Facility: [facility] - Location: Cardiac Diagnostic Laboratory Ordered By: Abhijit Coleman Referrals: Geovany Serrano MD [Physician] - 4-7 days (ANGINA You have an appointment with Dr. Serrano on May 27, 2021 at 10 am.) Bakari Oneil, PLASTICS FITTER-C [Primary Care Provider] - Discharge Diet: Cardiac and Low Salt Discharge Activity: Increase activity as tolerated Patient Instructions: Chest Pain Stoplight, Opioid Safety Discharge Attestations Time Spent in Discharge Care*: less than 30 min Quality Metrics Clinical Quality Measures During this hospital stay, did patient experience: None Coding Level of Care Code Acute [facility] note Diagnoses Chest pain R07.9 Chest pain type: unspecified COPD (chronic obstructive pulmonary disease) J43.9 COPD type: emphysema Emphysema type: unspecified UTI (urinary tract infection) N30.01 Hematuria presence: with hematuria Urinary tract infection type: acute cystitis
[2021-05-09] MEDS: losartan 50 mg Tablet PO (09:16)
[2021-05-09] MEDS: pantoprazole DR 40 mg Tablet PO (09:16)
[2021-05-09] MEDS: ciprofloxacin 500 mg Tablet PO (09:16)
--- NOTE | 2021-05-09 12:36 | PC.CHAP ---
Pastoral Care Encounter/Spiritual Assessment Type of Contact [] Declined transportation mechanic visit [] Patient/Family/Request visit [] Outpatient visit [] Follow-up visit [] Physician referral [] Code/Alert [] Routine visit [] Staff referral [] Actively dying [] Patient sleeping [] Family support [] [] Out of room [] Palliative care [] [] Receiving care in room [] Pre-surgical visit [] Trauma [] Long length of stay [] ICU visit [XX] Other: ISOLATION. Relational/Emotional Strength [] Patient feels connected with others/family/visitors/staff [] Distress [] Loneliness/isolation [] Abandonment Spirituality of Patient [] Person of Sarahi [] Attends Taoist of their Sarahi [] Believes in Prayer [] Reads Bible or Latter Day materials [] There are Spiritual issues to be addressed Oil Filters Inspector Interventions [] Prayer [] Active listening [] Non-anxious presence [] Spiritual/emotional support [] Crisis/trauma care [] Spiritual counseling [] Bereavement support [] Provided bereavement packet [] Provided Bible/devotional materials [] Provided toy/stuffed animal, coloring book to patient or family member [] Provided Communion [] Anointing/[place] [] Salvation [] Completed spiritual assessment [] Other: Impact on Illness or Injury [] Angry [] Fearful [] Anxious [] Often cries [] Exhaustion [] Unable to work [] Unable to attend sikh [] Unable to walk/stand [] Unable to read [] Unable to drive [] Unable to eat/drink [] Unable to sleep [] Unable to be with family [] Patient intubated [] Other: Summary Time spent with patient
[2021-05-09 16:54] LABS: Coronavirus Test Green County Not Detected
== END 2021-05-09 17:00 | disposition home or self-care (01) ==
LOC: ER 18:52 → CSU 20:02
PROVIDERS: Emergency Medicine; Student in an Organized Health Care Education/Training Program; Admitting Provider Family Medicine; Emergency Provider Emergency Medicine; PCP Nurse Practitioner; Visit Provider Internal Medicine
DX: I25.10 Atherosclerotic heart disease of native coronary artery without angina pectoris (principal); R07.9 Chest pain, unspecified; J43.9 Emphysema, unspecified; N30.01 Acute cystitis with hematuria; I82.4Y2 Acute embolism and thrombosis of unspecified deep veins of left proximal lower extremity; I10 Essential (primary) hypertension; Z86.718 Personal history of other venous thrombosis and embolism; E78.5 Hyperlipidemia, unspecified; F41.9 Anxiety disorder, unspecified; F32.9 Major depressive disorder, single episode, unspecified; E66.9 Obesity, unspecified; Z68.32 Body mass index [BMI] 32.0-32.9, adult; Z87.891 Personal history of nicotine dependence
CPT/HCPCS: 36415; 71045; 71275; 80053; 81003; 83690; 83880; 84484; 85025; 87086; 87635; 93005; 93306; 93971; 94640; 96365; 99285; G0378; J0696; J7626; Q9967

== ENCOUNTER → 2022-08-07 11:50 | Outpatient (BNVA) | payer MEDICARE, SELFPAY | PROVIDERS: PCP Nurse Practitioner; Visit Provider Nurse Practitioner | DX: R53.83 Other fatigue (principal) | CPT/HCPCS: 81003; 87086 ==

== ENCOUNTER 2023-04-13 16:27 | Observation (INO) | payer MEDICARE, SELFPAY ==
[2023-04-13 16:36] VITALS: BP 120/94; PULSE 108; RESP 16; O2SAT 95
[2023-04-13 16:40] VITALS: TEMP 36.7
--- NOTE | 2023-04-13 17:43 | PC.NURSE ---
When assessing patient with physician, it was found that the patient was covered in feces all over her buttocks, hips and vagina. I cleaned and partially bathed the patient, removed a large amount of the dried feces and placed the patient in [place] and clean linens were placed on the bed.
[2023-04-13 18:32] LABS: Basophils % 0.4 %; Eosinophils # 0.1 10^3/uL (0.0-0.8); Eosinophils % 0.9 %; Hematocrit 43.4 % (36-47); Lymphocytes # 1.6 10^3/uL (0.8-4.8); Lymphocytes % 15.3 %; Mean Corpuscular HGB Conc 32.3 g/dL (30-55); Mean Corpuscular Hemoglobin 30.4 pg (27-33); Mean Corpuscular Volume 94.1 fl (85-98); Mean Platelet Volume 8.7 fL (7.4-10.4); Monocytes # 0.8 10^3/uL (0.2-0.9); Monocytes % 7.6 %; Neutrophils # 7.89 10^3/uL (1.8-7.7); Neutrophils % 75.4 %; Nucleated Red Blood Cells % 0 %; Platelet Count 354 10^3/cmm (157-399); Red Blood Count 4.61 10^6/uL (3.85-5.65); Red Cell Distribution Width 14.2 % (12.1-15.1); White Blood Count 10.45 10^3/uL (3.29-11.43)
[2023-04-13 18:53] LABS: Alanine Aminotransferase 6 U/L (0-33); Albumin Level 3.9 g/dL (3.5-5.2); Alkaline Phosphatase 118 U/L (35-105); Anion Gap 17.4 (5-19); Aspartate Amino Transferase 12 U/L (0-32); Blood Urea Nitrogen 9 mg/dL (8-23); Calcium 9.4 mg/dL (8.5-10.5); Carbon Dioxide 27 mmol/L (22-29); Chloride 98 mmol/L (98-107); Globulin 3.4 g/dL (1.3-4.6); Glucose 115 mg/dL (65-115); Osmolality Calculated 286 mOsm/kg (285-295); Potassium 4.4 mmol/L (3.5-5.1); Sodium 138 mmol/L (136-145); Total Bilirubin 0.5 mg/dL (0.15-1.2); Total Protein 7.3 g/dL (6.6-8.7)
[2023-04-13 19:15] VITALS: BP 139/87; RESP 17; O2SAT 97
[2023-04-13 19:33] LABS: Add Urine Microscopic? YES; Bilirubin Urine Neg (Negative); Blood Urine 2+ (Negative); Glucose Urine UA Norm (Normal); Ketones Urine 2+ (Negative); Leukocyte Esterase Urine 2+ (Negative); Nitrate Urine Positive (Negative); Protein Urine Trace (Negative); Urine Appearance Cloudy (CLEAR); Urine Color Yellow (Yellow); Urobilinogen Urine Norm (Negative); pH Urine 6 (5-7)
[2023-04-13 19:39] LABS: Bacteria Urine 2+ /hpf; Mucus Urine TRACE /hpf; Squamous Epithelial Cell Urine RARE /hpf (0-5); WBC Urine 15-25 /hpf (0-5)
[2023-04-13 19:40] LABS: Add Urine Culture? Yes; Amorphous Sediment Urine 2+ /hpf; Hyaline Casts Urine RARE /lpf
--- NOTE | 2023-04-13 20:41 | W.ED.WEAKNES ---
HPI - Weakness General: Chief complaint: Weakness Stated complaint: WEAKNESS Time Seen by Provider: 04/13/23 16:44 History of Present Illness: This patient is an 88-year-old white female who was sent to the hospital by her daughter. Patient's daughter states that she is unable to care for her mother anymore at home. The patient has become nonambulatory. She has multiple chronic medical problems including AAA, COPD, CAD, hypertension and peripheral vascular disease. Patient just states she is feeling somewhat weak today. She has no other complaints. Review of Systems General: Reports: 10 or more systems reviewed and unremarkable except in HPI and below PFSH ED PFS: Medical History (Updated 06/29/22 @ 23:30 by SINAN Davis) AAA (abdominal aortic aneurysm) Anxiety and depression COPD (chronic obstructive pulmonary disease) Coronary artery disease DVT (deep venous thrombosis) 05/09/2021 Left Hyperlipidemia Hypertension Hypothyroidism Obesity Oxygen dependent As needed for COPD and SOB Peripheral vascular disease Urinary incontinence, mixed Surgical History History of AAA (abdominal aortic aneurysm) repair September 2020 in [place], [place] History of PTCA Hx of cholecystectomy Hx of heart artery stent Hx of hysterectomy Family History Sister Cancer BREAST Social History Smoking and tobacco status: never smoked Quit status (tobacco): has quit using tobacco Year quit tobacco: 1994 [id number] Second hand smoke exposure: Yes Smoking risk assessment/counseling performed?: Yes Alcohol intake: never Desire information about alcohol rehabilitation?: No Counseling given: No Substance/Drug Use: never Desire information about substance/drug rehabilitation?: No Counseling given: No Adopted: No Caregiver/support person: No Lives independently: Yes Household members: children Housing: House Marital status: service: No Current occupational status: retired Pets and animals: Yes Do you think of yourself as: Straight/Heterosexual Current gender identity: Female Physical Exam Const: COMMON NORMALS: no acute distress and patient oriented x3 OTHER: Unkempt, feces spread all over her buttocks and upper back. HENMT: COMMON NORMALS: normocephalic, atraumatic and moist oral mucous membranes HEAD & SCALP: normocephalic and atraumatic Eye: COMMON NORMALS: Equal, round and reactive pupils present, EOMs intact bilaterally and conjunctivae normal CONJUNCTIVA: Yes conjunctivae normal PUPIL: Yes Equal, round and reactive pupils present Resp: COMMON NORMALS: normal respiratory effort and clear to auscultation bilaterally AUSCULTATION: clear to auscultation bilaterally Cardio: COMMON NORMALS: regular rhythm RATE: tachycardic RHYTHM: regular rhythm GI: COMMON NORMALS: Normal to inspection, nondistended, normoactive bowel sounds present and Soft to palpation PALPATION: Yes Soft to palpation Extremity: COMMON NORMALS: normal to inspection Neuro: COMMON NORMALS: patient oriented x3, CN's II-XII intact bilaterally, moves all extremities, no focal motor deficits and no sensory deficits noted Skin: GENERAL SKIN EXAM: erythema (Buttocks) Course Vital Signs: Vital signs: Vital Signs Temperature 98.1 F 04/13/23 16:40 Pulse Rate 108 H 04/13/23 16:36 Respiratory Rate 17 04/13/23 19:15 Blood Pressure 139/87 04/13/23 19:15 Pulse Oximetry 97 04/13/23 19:15 Oxygen Delivery Me thod Nasal Cannula 04/13/23 19:15 Oxygen Flow Rate 2 04/13/23 19:15 MDM - Weakness Medical Decision Making CBC and CMP were normal. Urinalysis is consistent with a urinary tract infection. Patient was given 1 g of Rocephin IV. Patient will need to be admitted and will need longterm placement. I discussed the case with Dr. Duke, hospitalist. He did accept the patient. Patient will be transferred to the floor shortly. She is stable. Lab Data 04/13/23 17:58 04/13/23 17:58 Laboratory Results WBC 10.45 10^3/uL (3.29-11.43) 04/13/23 17:58 RBC 4.61 10^6/uL (3.85-5.65) 04/13/23 17:58 Hgb 14.00 g/dL (11.27-16.99) 04/13/23 17:58 Hct 43.4 % (36-47) 04/13/23 17:58 MCV 94.1 fl (85-98) 04/13/23 17:58 MCH 30.4 pg (27-33) 04/13/23 17:58 MCHC 32.3 g/dL (30-55) 04/13/23 17:58 RDW 14.2 % (12.1-15.1) 04/13/23 17:58 Plt Count 354 10^3/cmm (157-399) 04/13/23 17:58 MPV 8.7 fL (7.4-10.4) 04/13/23 17:58 Neut % (Auto) 75.4 % 04/13/23 17:58 Lymph % (Auto) 15.3 % 04/13/23 17:58 [place] % (Auto) 7.6 % 04/13/23 17:58 Eos % (Auto) 0.9 % 04/13/23 17:58 Baso % (Auto) 0.4 % 04/13/23 17:58 Neut # (Auto) 7.89 10^3/uL (1.8-7.7) H 04/13/23 17:58 Lymph # (Auto) 1.6 10^3/uL (0.8-4.8) 04/13/23 17:58 [place] # (Auto) 0.8 10^3/uL (0.2-0.9) 04/13/23 17:58 Eos # (Auto) 0.1 10^3/uL (0.0-0.8) 04/13/23 17:58 Baso # (Auto) 0.0 10^3/uL (0.0-0.1) 04/13/23 17:58 Nucleated RBC % (auto) 0 % 04/13/23 17:58 Nucleated RBCs # 0.0 /100WBC 04/13/23 17:58 Sodium 138 mmol/L (136-145) 04/13/23 17:58 Potassium 4.4 mmol/L (3.5-5.1) 04/13/23 17:58 Chloride 98 mmol/L (98-107) 04/13/23 17:58 Carbon Dioxide 27 mmol/L (22-29) 04/13/23 17:58 Anion Gap 17.4 (5-19) 04/13/23 17:58 BUN 9 mg/dL (8-23) 04/13/23 17:58 Creatinine 0.6 mg/dL (0.5-0.9) 04/13/23 17:58 GFR Calculation Not Reportable 04/13/23 17:58 Glucose 115 mg/dL (65-115) 04/13/23 17:58 Calculated Osmolality 286 mOsm/kg (285-295) 04/13/23 17:58 Calcium 9.4 mg/dL (8.5-10.5) 04/13/23 17:58 Total Bilirubin 0.5 mg/dL (0.15-1.2) 04/13/23 17:58 AST 12 U/L (0-32) 04/13/23 17:58 ALT 6 U/L (0-33) 04/13/23 17:58 Alkaline Phosphatase 118 U/L (35-105) H 04/13/23 17:58 Total Protein 7.3 g/dL (6.6-8.7) 04/13/23 17:58 Albumin 3.9 g/dL (3.5-5.2) 04/13/23 17:58 Globulin 3.4 g/dL (1.3-4.6) 04/13/23 17:58 Urine Color Yellow (Yellow) 04/13/23 19:09 Urine Appearance Cloudy (CLEAR) A 04/13/23 19:09 Urine pH 6 (5-7) 04/13/23 19:09 Ur Specific [place] 1.020 (1.005-1.030) 04/13/23 19:09 Urine Protein Trace (Negative) 04/13/23 19:09 Urine Glucose (UA) Norm (Normal) 04/13/23 19:09 Urine Ketones 2+ (Negative) H 04/13/23 19:09 Urine Blood 2+ (Negative) H 04/13/23 19:09 Urine Nitrate Positive (Negative) H 04/13/23 19:09 Urine Bilirubin Neg (Negative) 04/13/23 19:09 Urine Urobilinogen Norm mg/dL (Negative) 04/13/23 19:09 Ur Leukocyte Esterase 2+ (Negative) H 04/13/23 19:09 Urine RBC 5-10 /hpf (0-2) H 04/13/23 19:09 Urine WBC 15-25 /hpf (0-5) H 04/13/23 19:09 Ur Squamous Epith Cells Rare /hpf (0-5) 04/13/23 19:09 Amorphous Sediment 2+ /hpf 04/13/23 19:09 Urine Bacteria 2+ /hpf (NONE) H 04/13/23 19:09 Hyaline Casts Rare /lpf 04/13/23 19:09 Urine Mucus Trace /hpf 04/13/23 19:09 No radiology studies performed this visit Discharge Plan Discharge Condition: Stable Prescriptions: No Action albuterol sulfate [Ventolin HFA] 90 mcg/actuation HFA aerosol inhaler 2 puff inhalation Q6H PRN (Reason: shortness of breath or wheezing) Qty: 8.5 5RF Eliquis 5 mg tablet 5 mg PO BID Qty: 60 5RF duloxetine [Cymbalta] 30 mg capsule,delayed release(DR/EC) 30 mg PO BID Qty: 180 1RF fluticasone propion-salmeterol [Advair Diskus] 250-50 mcg/dose blister with device 1 inh inhalation Q12H Qty: 60 5RF losartan 50 mg tablet 50 mg PO DAILY Qty: 90 5RF polyethylene glycol 3350 [Miralax] 17 gram/dose powder 17 g PO DAILY Qty: 510 5RF (DME) wheelchair See Rx Instructions .Route .MEDSUPPLY Qty: 1 0RF Rx Instructions: As directed (DME) DME: Walker Unit See Rx Instructions .ROUTE .MEDSUPPLY Qty: 1 0RF Rx Instructions: Code E0143 and E0156 walker 4 wheels and seat MediHoney (honey) 100 % paste 1 applic topical BID Qty: 103 2RF nitrofurantoin monohyd/m-cryst [Macrobid] 100 mg capsule 100 mg PO Q12H 7 Days Qty: 14 0RF Rx Instructions: must administer with a meal/food acetaminophen [Tylenol Extra Strength] 500 mg Tablet 1,000 mg PO PRN nitroglycerin 0.4 mg tablet, sublingual 0.4 mg sublingual PRN PRN (Reason: Chest Pain) Referrals: Bakari Oneil FNP-C [Primary Care Provider] - Coding Level of Care Code ED Access Services Representative for Santi Nix
[2023-04-13 21:00] VITALS: BP 158/76
[2023-04-13] MEDS: cefTRIAXone 1,000 MG in sodium chloride 0.9% (plus) 50 ML 100 MG IV (21:04)
[2023-04-13 21:59] VITALS: BP 144/86; PULSE 91; RESP 16; O2SAT 95
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
[2023-04-13 22:15] VITALS: BP 168/81; PULSE 94; PULSE 95; RESP 19; TEMP 36.5; O2SAT 96
--- NOTE | 2023-04-13 22:45 | PC.NURSE ---
when pt was brought to floor this POT ROOM SUPERVISOR notice that pt had dirty finger nails and it appeared to be feces under nails and a little bit on pt nose. This POT ROOM SUPERVISOR clean under nails and washed pt faces. pt seem pleased
[2023-04-13] MEDS: apixaban 5 mg Tablet PO (22:47)
[2023-04-13] MEDS: sodium chloride 0.9% 1,000 ML 75 ML IV (22:48)
[2023-04-13] MEDS: pantoprazole 40 mg SDV IVP (22:48)
[2023-04-13 23:13] LABS: NT Pro B Type Natriuretic Pept 237 pg/mL (0-450); Thyroid Stimulating Hormone 3.31 uIU/mL (0.27-4.20)
[2023-04-13 23:14] LABS: Estmated Average Glucose 108; Hemoglobin A1C 5.4 % (4.0-6.0)
[2023-04-13 23:24] LABS: Chol HDL Ratio 3.48 mg/dL (0.0-4.40); Cholesterol 188 mg/dL (0-200); HDL Cholesterol 54 mg/dL (60-100); LDL Cholesterol Calculated 110 mg/dL (50-129); LDL HDL Ratio 2.04 RATIO (0.00-3.22); Triglycerides 119 mg/dL (0-150)
[2023-04-13 23:54] LABS: Lactic Sepsis W/Reflex 1.4 mmol/L (0.5-2.2)
[2023-04-14] VITALS (9 sets, daily range): BP systolic 120–170; BP diastolic 65–81; PULSE 71–90; RESP 16–18; TEMP 36.4–36.7; O2SAT 94–97
[2023-04-14 05:15] LABS: Basophils % 0.4 %; Eosinophils # 0.3 10^3/uL (0.0-0.8); Eosinophils % 2.7 %; Hematocrit 38.4 % (36-47); Lymphocytes # 1.8 10^3/uL (0.8-4.8); Lymphocytes % 18.3 %; Mean Corpuscular HGB Conc 32.3 g/dL (30-55); Mean Corpuscular Hemoglobin 30.2 pg (27-33); Mean Corpuscular Volume 93.7 fl (85-98); Mean Platelet Volume 8.8 fL (7.4-10.4); Neutrophils # 6.69 10^3/uL (1.8-7.7); Neutrophils % 68.2 %; Nucleated Red Blood Cells % 0 %; Platelet Count 309 10^3/cmm (157-399); Red Cell Distribution Width 14.3 % (12.1-15.1); White Blood Count 9.81 10^3/uL (3.29-11.43)
[2023-04-14 05:40] LABS: Anion Gap 14.9 (5-19); Blood Urea Nitrogen 12 mg/dL (8-23); Calcium 8.6 mg/dL (8.5-10.5); Carbon Dioxide 27 mmol/L (22-29); Chloride 101 mmol/L (98-107); Glucose 106 mg/dL (65-115); Osmolality Calculated 288 mOsm/kg (285-295); Phosphorus 3.7 mg/dL (2.5-4.5); Potassium 3.9 mmol/L (3.5-5.1); Sodium 139 mmol/L (136-145)
--- NOTE | 2023-04-14 08:04 | PC.PHAR ---
PT UNABLE TO VERIFY MEDS - PTS POP JAMIL TAKES CARE OF THEM FOR PT- HAVE LEFT A MESSAGE FOR HER TO CALL ME TO VERIFY MEDS 8:00 AM
--- NOTE | 2023-04-14 09:49 | PC.PHAR ---
pot sts she sometimes has help with her medications- pt unsure if she still takes eliquis 5 mg bid and losartan 50 mg- [facility] and spoke to kehinde to verify last filled and picked up
[2023-04-14] MEDS: losartan 50 mg Tablet PO (10:00)
[2023-04-14] MEDS: duloxetine 30 mg Capsule PO ×2 (10:01→17:20)
[2023-04-14] MEDS: apixaban 5 mg Tablet PO ×2 (10:01→21:47)
--- NOTE | 2023-04-14 11:04 | PM.PN ---
Subjective Subjective: Stacey Ordonez is a 88 year old female with a past medical history of DVT on Eliquis, history of COPD on 2 L, history of anxiety and depression, history of abdominal aortic aneurysm repair, who presents to [facility] due to generalized fatigue, malaise, and that her daughters unable to take care of her anymore.? Stacey tells me that she lives at home with her daughter, she collects disability, she tells me that she primarily spends her time in her recliner, she rarely ventures off her recliner, she tells me that she uses her depends, if she does need to use the bathroom her daughter helps her, but recently reluctantly, she tells me that her daughter cooks and cleans for her, but tells me that recently she has been reluctantly doing it, she tells me that her daughter is going through a mental health crisis, and her daughter cannot take care of her anymore and her daughter called EMS because of this reason.? 04/14/2023: Patient has no complaints this morning. She talks about being weak and she does not know why. She is interested in the next stair sizes the physical therapist gave her? Vitals/I&O/Wt Last Vital Signs Temp 97.8 F 04/14/23 07:42 Pulse 86 04/14/23 07:42 Resp 16 04/14/23 07:42 BP 148/79 04/14/23 10:00 Pulse Ox 97 04/14/23 07:42 O2 Del Method Room Air 04/14/23 07:42 O2 Flow Rate 2 04/13/23 22:15 04/13/23 04/14/23 04/14/23 22:59 06:59 14:59 Intake Total 50 / 50 240 / 290 Output Total 200 / 200 Balance 50 / 50 40 / 90 Weight last 48 hrs Weight 72.575 kg Physical Exam Narrative: Stacey is an elderly female in no acute distress at time of examination Neurologic: Alert and oriented x3. Nonfocal to exam cranial nerves II through XII grossly intact Heart: Regular rate and rhythm normal S1-S2 without murmurs clicks gallops or rubs Lungs: Clear to auscultation without wheezes rales or rhonchi Abdomen: Obese soft nontender nondistended positive bowel sounds no hepatosplenomegaly Extremities: Thighs increased in size out of proportion to lower extremities. However no pitting edema. Urinary Catheter Management: Wilder: Cath Placed During This Visit: yes Reason for Continuing Indwelling Catheter: Other Urinary Catheter Date of Insertion: 04/13/23 Urinary Catheter Time of Insertion: 21:00 Data 04/14/23 04:41 04/14/23 04:41 Micro: Microbiology 04/13/23 23:26 Blood Culture - Preliminary Blood SPECIMEN COLLECTED 04/13/23 23:26 Blood Culture - Preliminary Blood SPECIMEN COLLECTED A&P Assessment and plan (1) Oxygen dependent: (2) COPD (chronic obstructive pulmonary disease): Qualifiers: COPD type: emphysema Emphysema type: unspecified Qualified Code(s): J43.9 - Emphysema, unspecified (3) Anxiety and depression: (4) History of AAA (abdominal aortic aneurysm) repair: (5) DVT (deep venous thrombosis): She should not require anticoagulation however patient remains sedentary thus I will continue at this time. Qualifiers: DVT location: lower extremity Affected thrombotic vein of extremity: unspecified vein of extremity Chronicity: unspecified Laterality: unspecified laterality Qualified Code(s): I82.409 - Acute embolism and thrombosis of unspecified deep veins of unspecified lower extremity (6) Hypertension: Blood pressure appears fairly well controlled. Qualifiers: Hypertension type: essential hypertension Qualified Code(s): I10 - Essential (primary) hypertension (7) Coronary artery disease: By history Qualifiers: Coronary Disease-Associated Artery/Lesion type: unspecified vessel or lesion type [place] vs. transplanted heart: unspecified whether [place] or transplanted heart Associated angina: unspecified whether angina present Qualified Code(s): I25.10 - Atherosclerotic heart disease of [place] coronary artery without angina pectoris (8) UTI (urinary tract infection): On Rocephin. Follow-up urine cultures and blood cultures Qualifiers: Urinary tract infection type: acute cystitis Hematuria presence: with hematuria Qualified Code(s): N30.01 - Acute cystitis with hematuria (9) Generalized weakness: (10) Physical deconditioning: PT OT, consult dietary, speech therapy. (11) Protein calorie malnutrition: Plan prison placement. Attestations Medical Necessity Statement*: Patient requires hospitalization, inpatient, greater than 2 midnights, for generalized weakness, physical deconditioning, protein calorie malnutrition, UTI Coding Level of Care Code Acute Code for Chg Fwd Diagnoses Oxygen dependent Z99.81 COPD (chronic obstructive pulmonary disease) J43.9 COPD type: emphysema Emphysema type: unspecified Anxiety and depression F41.9; F32.9 History of AAA (abdominal aortic aneurysm) repair Z98.890 DVT (deep venous thrombosis) I82.409 DVT location: lower extremity Affected thrombotic vein of extremity: unspecified vein of extremity Chronicity: unspecified Laterality: unspecified laterality Hypertension I10 Hypertension type: essential hypertension Coronary artery disease I25.10 Coronary Disease-Associated Artery/Lesion type: unspecified vessel or lesion type [place] vs. transplanted heart: unspecified whether [place] or transplanted heart Associated angina: unspecified whether angina present UTI (urinary tract infection) N30.01 Urinary tract infection type: acute cystitis Hematuria presence: with hematuria Generalized weakness R53.1 Physical deconditioning R53.81 Protein calorie malnutrition E46
--- NOTE | 2023-04-14 11:10 | PC.CHAP ---
Pastoral Care Encounter/Spiritual Assessment Type of Contact [] Declined biotechnician visit [] Patient/Family/Request visit [] Outpatient visit [] Follow-up visit [] Physician referral [] Code/Alert [x] Routine visit [] Staff referral [] Actively dying [] Patient sleeping [] Family support [] [] Out of room [] Palliative care [] [] Receiving care in room [] Pre-surgical visit [] Trauma [] Long length of stay [] ICU visit [] Other: Relational/Emotional Strength [x] Patient feels connected with others/family/visitors/staff [] Distress [] Loneliness/isolation [] Abandonment Spirituality of Patient [] Person of Sarahi [] Attends Jewish of their Sarahi [x] Believes in Prayer [] Reads Bible or Synagogue materials [] There are Spiritual issues to be addressed Cable Armorer Interventions [x] Prayer [] Active listening [] Non-anxious presence [] Spiritual/emotional support [] Crisis/trauma care [] Spiritual counseling [] Bereavement support [] Provided bereavement packet [] Provided Bible/devotional materials [] Provided toy/stuffed animal, coloring book to patient or family member [] Provided Communion [] Anointing/[place] [] Salvation [] Completed spiritual assessment [] Other: Impact on Illness or Injury [] Angry [] Fearful [] Anxious [] Often cries [] Exhaustion [] Unable to work [] Unable to attend methodist [] Unable to walk/stand [] Unable to read [] Unable to drive [] Unable to eat/drink [] Unable to sleep [] Unable to be with family [] Patient intubated [] Other: Summary Time spent with patient 10 min
[2023-04-14] MEDS: sodium chloride 0.9% 1,000 ML 75 ML IV (11:42)
[2023-04-14] MEDS: pantoprazole 40 mg SDV IVP (21:47)
[2023-04-15] MEDS: sodium chloride 0.9% 1,000 ML 75 ML IV (00:53)
[2023-04-15 03:47] VITALS: BP 165/88; PULSE 77; RESP 16; TEMP 36.4; O2SAT 94
[2023-04-15 08:00] VITALS: BP 147/84; PULSE 93; RESP 16; O2SAT 92
[2023-04-15 08:18] VITALS: BP 147/84
[2023-04-15] MEDS: duloxetine 30 mg Capsule PO (08:18)
[2023-04-15] MEDS: losartan 50 mg Tablet PO (08:18)
[2023-04-15] MEDS: apixaban 5 mg Tablet PO (10:15)
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
[2023-04-15 11:15] LABS: SARS Covid-2 Antigen negative (Negative)
[2023-04-15 11:43] VITALS: BP 169/84; PULSE 90; RESP 15; TEMP 36.4; O2SAT 96
== END 2023-04-15 14:40 | disposition skilled nursing facility (03) ==
LOC: ER 20:41 → MEDSURG 22:58
PROVIDERS: Admitting Provider Family Medicine; Emergency Provider Emergency Medicine; PCP Nurse Practitioner; Visit Provider Internal Medicine
DX: J43.9 Emphysema, unspecified (principal); Z99.81 Dependence on supplemental oxygen; F41.9 Anxiety disorder, unspecified; F32.9 Major depressive disorder, single episode, unspecified; Z98.890 Other specified postprocedural states; I10 Essential (primary) hypertension; I25.10 Atherosclerotic heart disease of native coronary artery without angina pectoris; N30.01 Acute cystitis with hematuria; R53.1 Weakness; R53.81 Other malaise; E46 Unspecified protein-calorie malnutrition; Z68.28 Body mass index [BMI] 28.0-28.9, adult; Z86.718 Personal history of other venous thrombosis and embolism; Z79.01 Long term (current) use of anticoagulants
CPT/HCPCS: 36415; 51702; 80048; 80053; 80061; 81001; 83036; 83605; 83735; 83880; 84100; 84145; 84443; 85025; 87040; 87077; 87086; 87186; 87426; 92523; 92610; 96361; 96365; 96375; 97110; 97161; 97166; 97530; 99285; C9113; G0378; J0696; J7030